=== PATIENT | female | born 2000 | race Caucasian/White ===

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

== ENCOUNTER → 2021-04-30 11:13 | Outpatient (BNVA) | payer BC, SELFPAY | PROVIDERS: Family Provider Nurse Practitioner; PCP Nurse Practitioner Family; Visit Provider Nurse Practitioner Women's Health | DX: N91.2 Amenorrhea, unspecified (principal); N92.6 Irregular menstruation, unspecified | CPT/HCPCS: 81025 ==

== ENCOUNTER → 2021-05-12 10:19 | Outpatient (BNVA) | payer BC, MEDICAID, SELFPAY | PROVIDERS: Family Provider Nurse Practitioner; PCP Nurse Practitioner Family; Visit Provider Nurse Practitioner Women's Health | DX: Z34.80 Encounter for supervision of other normal pregnancy, unspecified trimester (principal) | CPT/HCPCS: 81000 ==

== ENCOUNTER → 2021-06-09 09:32 | Outpatient (BNVA) | payer BC, MEDICAID, SELFPAY | PROVIDERS: Family Provider Nurse Practitioner; PCP Nurse Practitioner Family; Visit Provider Obstetrics & Gynecology | DX: Z34.80 Encounter for supervision of other normal pregnancy, unspecified trimester (principal); K21.9 Gastro-esophageal reflux disease without esophagitis; F41.1 Generalized anxiety disorder | CPT/HCPCS: 80307; 81000; 85027; 86592; 86762; 86803; 86850; 86900; 87086; 87340; 87491; 87591; 87806 ==

== ENCOUNTER → 2021-06-16 10:43 | Outpatient (BNVA) | payer BC, MEDICAID, SELFPAY | PROVIDERS: Family Provider Nurse Practitioner; PCP Nurse Practitioner Family; Visit Provider Obstetrics & Gynecology | DX: R30.0 Dysuria (principal) | CPT/HCPCS: 81000; 87086 ==

== ENCOUNTER → 2021-07-01 09:59 | Outpatient (BNVA) | payer BC, MEDICAID, SELFPAY | PROVIDERS: Family Provider Nurse Practitioner; PCP Nurse Practitioner Family; Visit Provider Nurse Practitioner Women's Health | DX: Z34.80 Encounter for supervision of other normal pregnancy, unspecified trimester (principal) | CPT/HCPCS: 81000 ==

== ENCOUNTER → 2021-08-07 15:19 | Outpatient (BNVA) | payer BC, MEDICAID, SELFPAY | PROVIDERS: Family Provider Nurse Practitioner; PCP Nurse Practitioner Family; Visit Provider Obstetrics & Gynecology | DX: Z36.87 Encounter for antenatal screening for uncertain dates (principal) | CPT/HCPCS: 76805 ==

== ENCOUNTER → 2021-08-11 08:58 | Outpatient (BNVA) | payer BC, MEDICAID, SELFPAY | PROVIDERS: Family Provider Nurse Practitioner; PCP Nurse Practitioner Family; Visit Provider Obstetrics & Gynecology | DX: Z34.80 Encounter for supervision of other normal pregnancy, unspecified trimester (principal); Z67.91 Unspecified blood type, Rh negative | CPT/HCPCS: 81000 ==

== ENCOUNTER → 2021-08-25 09:41 | Outpatient (BNVA) | payer BC, MEDICAID, SELFPAY | PROVIDERS: Family Provider Nurse Practitioner; PCP Nurse Practitioner Family; Visit Provider Nurse Practitioner Women's Health | DX: O26.899 Other specified pregnancy related conditions, unspecified trimester (principal); Z67.91 Unspecified blood type, Rh negative; F41.1 Generalized anxiety disorder; K21.9 Gastro-esophageal reflux disease without esophagitis; Z3A.00 Weeks of gestation of pregnancy not specified | CPT/HCPCS: 81000 ==

== ENCOUNTER → 2021-09-22 10:15 | Outpatient (BNVA) | payer BC, MEDICAID, SELFPAY | PROVIDERS: Family Provider Nurse Practitioner; PCP Nurse Practitioner Family; Visit Provider Obstetrics & Gynecology | DX: Z34.80 Encounter for supervision of other normal pregnancy, unspecified trimester (principal) | CPT/HCPCS: 81000; 82950; 85027; 86850 ==

== ENCOUNTER → 2021-10-06 10:09 | Outpatient (BNVA) | payer BC, MEDICAID, SELFPAY | PROVIDERS: Family Provider Nurse Practitioner; PCP Nurse Practitioner Family; Visit Provider Nurse Practitioner Women's Health | DX: Z34.80 Encounter for supervision of other normal pregnancy, unspecified trimester (principal) | CPT/HCPCS: 81000 ==

== ENCOUNTER → 2021-10-19 12:59 | Outpatient (BNVA) | payer BC, MEDICAID, SELFPAY | PROVIDERS: Family Provider Nurse Practitioner; PCP Nurse Practitioner Family; Visit Provider Obstetrics & Gynecology | DX: O26.899 Other specified pregnancy related conditions, unspecified trimester; R31.9 Hematuria, unspecified; Z67.91 Unspecified blood type, Rh negative; Z3A.00 Weeks of gestation of pregnancy not specified | CPT/HCPCS: 81000 ==

== ENCOUNTER → 2021-10-27 15:30 | Outpatient (BNVA) | payer BC, MEDICAID, SELFPAY | PROVIDERS: Family Provider Nurse Practitioner; PCP Nurse Practitioner Family; Visit Provider Obstetrics & Gynecology | DX: Z34.80 Encounter for supervision of other normal pregnancy, unspecified trimester (principal) | CPT/HCPCS: 81000; 87086 ==

== ENCOUNTER → 2021-11-03 12:03 | Outpatient (BNVA) | payer BC, MEDICAID, SELFPAY | PROVIDERS: Family Provider Nurse Practitioner; PCP Nurse Practitioner Family; Visit Provider Obstetrics & Gynecology | DX: Z78.9 Other specified health status (principal); Z34.80 Encounter for supervision of other normal pregnancy, unspecified trimester | CPT/HCPCS: 81000 ==

== ENCOUNTER → 2021-11-16 09:00 | Outpatient (BNVA) | payer BC, MEDICAID, SELFPAY | PROVIDERS: Family Provider Nurse Practitioner; PCP Nurse Practitioner Family; Visit Provider Obstetrics & Gynecology | DX: Z34.80 Encounter for supervision of other normal pregnancy, unspecified trimester (principal); Z3A.00 Weeks of gestation of pregnancy not specified | CPT/HCPCS: 81000; 87081 ==

== ENCOUNTER → 2021-11-23 13:18 | Outpatient (BNVA) | payer BC, MEDICAID, SELFPAY | PROVIDERS: Family Provider Nurse Practitioner; PCP Nurse Practitioner Family; Visit Provider Obstetrics & Gynecology | DX: Z34.80 Encounter for supervision of other normal pregnancy, unspecified trimester (principal); Z3A.00 Weeks of gestation of pregnancy not specified | CPT/HCPCS: 81000 ==

== ENCOUNTER → 2021-11-30 13:09 | Outpatient (BNVA) | payer BC, MEDICAID, SELFPAY | PROVIDERS: Family Provider Nurse Practitioner; Visit Provider Obstetrics & Gynecology | DX: Z34.80 Encounter for supervision of other normal pregnancy, unspecified trimester (principal) | CPT/HCPCS: 81000 ==

== ENCOUNTER → 2021-12-07 08:20 | Outpatient (BNVA) | payer BC, MEDICAID, SELFPAY | PROVIDERS: Family Provider Nurse Practitioner; Visit Provider Obstetrics & Gynecology | DX: Z34.80 Encounter for supervision of other normal pregnancy, unspecified trimester (principal); Z3A.00 Weeks of gestation of pregnancy not specified | CPT/HCPCS: 81000; 87635 ==

== ENCOUNTER 2021-12-08 14:45 | Outpatient (CLI) | payer BC, MEDICAID, SELFPAY ==
[2021-12-08] VITALS (11 sets, daily range): BP systolic 84–129; BP diastolic 52–70; PULSE 90–100; TEMP 36; BMI 28.7
--- NOTE | 2021-12-08 15:35 | PM.ACPR ---
Procedure/Consent Procedure Narrative: NONSTRESS TEST: Place of test: [facility] [place] Indication: 21-year-old 2 para 0-0-1-0 at 39 weeks and 2 days-abdominal pain/contractions Date and time of test: 3:15 PM, 12/08/2021 Baseline: 130 Variability: Moderate variability Accelerations: Accelerations present Decelerations: No decelerations Tocometry: Irregular contractions INTERPRETATION: NST reactive-clinical correlation recommended, continue kick counts
== END 2021-12-08 17:45 | disposition home or self-care (01) ==
LOC: OPOB 14:46 → OBGYN 14:55
PROVIDERS: Family Provider Nurse Practitioner; Visit Provider Obstetrics & Gynecology
DX: O26.899 Other specified pregnancy related conditions, unspecified trimester (principal); Z3A.00 Weeks of gestation of pregnancy not specified; R10.9 Unspecified abdominal pain
CPT/HCPCS: 59025; 99211

== ENCOUNTER 2021-12-14 21:48 | Inpatient (IN) | payer BC, MEDICAID, SELFPAY ==
[2021-12-14] VITALS (35 sets, daily range): BP systolic 99–127; BP diastolic 55–68; PULSE 85–119; RESP 16; O2SAT 96–99; BMI 28.3
[2021-12-14 20:32] LABS: Basophils # 0.1 10^3/uL (0.0-0.1); Basophils % 0.3 %; Eosinophils # 0.1 10^3/uL (0.0-0.8); Eosinophils % 0.6 %; Lymphocytes % 19.1 %; Mean Corpuscular HGB Conc 32.5 g/dL (30.0-36.0); Mean Corpuscular Hemoglobin 30.5 pg (28.0-34.0); Mean Corpuscular Volume 93.9 fl (81-99); Monocytes % 6.1 %; Neutrophils # 11.29 10^3/uL (1.8-8.0); Neutrophils % 71.6 %; Nucleated Red Blood Cells % 0 %; Platelet Count 232 10^3/cmm (130-400); Red Blood Count 4.26 10^6/uL (4.1-5.3); Red Cell Distribution Width 14.3 % (12.1-15.1); White Blood Count 15.8 10^3/uL (4.5-13.0)
[2021-12-14] MEDS: dextrose 5%-lactated ringers 1,000 ML 999 ML IV (20:38)
[2021-12-14] MEDS: miSOPROStol 100 mcg tablet 25 MCG VAGINAL (23:00)
[2021-12-15] VITALS (99 sets, daily range): BP systolic 83–139; BP diastolic 44–90; PULSE 76–111; RESP 16–18; TEMP 36.4–37.2; O2SAT 97–100
[2021-12-15] MEDS: lactated ringers 1,000 ML 999 ML IV ×2 (02:38→03:52)
--- NOTE | 2021-12-15 03:57 | ANES.PREANE2 ---
Pre-Anesthetic Assessment Height/Weight: Height 1.55 m Weight 68.039 kg Pulse Resp BP Pulse Ox 102 H 16 114/63 98 12/15/21 03:54 12/14/21 20:18 12/15/21 03:54 12/15/21 03:54 Preop Diagnosis: IUP JORDEN Was Beta Joaquim taken within 24 hours: N/A Was Clonidine taken within 24 hours: N/A Social No alcohol and No tobacco Exam alert and oriented x 3 Airway Submandibular: within normal limits Cervical ROM: within normal limits Mallampati: Class II Dentition: full History/ROS No significant complaints Anesthetic Plan ASA status: 2 Anesthesia: Anesthesia Evaluation and Regional (specify below) (labor epidural) Risk of > 500 ml blood loss (7ml/kg in children): No Medications/Allergies Home Medications Medication Instructions Recorded Confirmed Last Taken Type prenat.vits,carlos enrique,gra-brxh-iqwac 1 tab PO DAILY 09/22/21 12/14/21 12/14/21 History breast pump (Pump In Style #1 ea 11/03/21 12/14/21 Unknown Rx Advanced) Allergies Allergy/AdvReac Type Severity Reaction Status Date / Time Penicillins AdvReac rash--Never Verified 12/14/21 21:23 took Keflex Current Medications Generic Name Dose Route Start Last Admin Trade Name Freq PRN Reason Stop Dose Admin Dextrose/Lactated Ringer's 1,000 mls @ 125 mls/hr 12/14/21 20:18 12/14/21 21:16 Dextrose 5%-Lactated Ringers IV 125 mls/hr .Q8H PRN Infusion IOL Lactated Ringer's 1,000 mls @ 999 mls/hr 12/15/21 02:33 12/15/21 02:38 Lactated Ringers IV 999 mls/hr .Q1H1M PRN Administration See label comments [facility] Anesthesia Medical History Decreased hearing of right ear Decreased hearing in right ear after she jumped off a height into a pool and hurt her ear She can still hear although not very well. Generalized anxiety disorder Reports having had some anxiety in the past but has not needed medication. She does not have a therapist. She feels like it was situational. GERD (gastroesophageal reflux disease) Symptomatic since 2018 and has been on omeprazole. Has not had an endoscopy done. Migraine no aura. States that she has pretty bad headaches and was told they were migraines by a neurologist and was asked to take propanolol in the past which did not help and symptoms are controlled on Tylenol as needed. No pertinent past medical history Denies diabetes, asthma, hypertension, seizures, DVT/PE PCP: None Surgical History No history of previous surgery Family History Family/Other Diabetes Maternal Aunt with type 1 DM Colon cancer Paternal Great Grandfather--dx age 60/ and paternal grandfather age at dx 61 Father Hypertension Denies family history of Ovarian cancer Heart disease Hypercholesteremia Breast cancer Uterine cancer Thyroid disease Stroke Female Reproductive History : 2 Data Anesthesia : 12/14/21 19:50 Short CBC 12/14/21 Range/Units 19:50 WBC 15.8 H (4.5-13.0) 10^3/uL Hgb 13.0 (11.5-15.3) g/dL Hct 40.0 (37.0-47.0) % MCV 93.9 (81-99) fl Plt Count 232 (130-400) 10^3/cmm Neut % (Auto) 71.6 % Neut # (Auto) 11.29 H (1.8-8.0) 10^3/uL Cardiac Studies: No Data to Display
--- NOTE | 2021-12-15 03:59 | ANES.PROC ---
Anesthesia Procedures Procedure/Date: 12/15/21 JORDEN Epidural: Time Out Performed: Yes Consents Signed: Procedure Consent Consent: from patient, risks and benefits reviewed and patient agrees to proceed Lumbar Level: L3-L4 Epidural position: sitting Epidural procedure: sterile prep of area, 1% lidocaine to numb the area, 18 g needle, negative for paresthesia passed, test dose given, 1.5% xylocaine 1:200k epi (3cc), placed PCEA, no systemic response, sterile dressing applied, L.U.D. no apparent complications and 0.2% Ropiavacaine @ mls/hr (11) Additional Comments: LAVERN at 5 Taped at 11 at skin.
[2021-12-15] MEDS: dextrose 5%-lactated ringers 1,000 ML 125 ML IV ×2 (08:00→12:25)
[2021-12-15] MEDS: oxytocin 30 UNIT/500 ML BAG IV (08:21)
[2021-12-15] MEDS: ondansetron 2 mg/ML SDV 2 mL 4 MG IVP (13:03)
[2021-12-15] MEDS: metoclopramide 5 mg/mL SDV 2 mL 10 MG IV (14:30)
[2021-12-15] MEDS: lidocaine 2% INJ 20 mL INJECTION (18:05)
--- NOTE | 2021-12-15 18:30 | P.PCNOB_ITS ---
Delivery Note: Date of delivery: December 15, 2021 - PRE-DELIVERY DIAGNOSIS: 21-year-old 2 para 0-0-1-0 at 40 weeks and 2 days gestation Elective induction of labor Rh negative--- RhoGam candidate Anxiety-no medication Acid reflux-no medication POST-DELIVERY DIAGNOSIS: Vaginal delivery on 12/15/2021 PROCEDURE: Vaginal delivery on 12/15/2021 ANESTHESIA: Epidural anesthesia, local anesthesia with 2% lidocaine DELIVERING PHYSICIAN: Tu Kahn FACKARLOS PRE-DELIVERY COURSE: Ms. Herrera is a 21-year-old 2 para 0-0-1-0 at 40 weeks and 1 day gestation who presented to labor and delivery on 12/14/2021 for scheduled elective induction of labor. On admission she had irregular contractions and a category 1 tracing and cervix was 1 cm 50% and -3 station. After IV fluid hydration her contractions resolved and she had no further contractions. Induction was started with Cytotec placed at 11 PM. With this she started to have regular contraction and made some cervical change to 2 to 360% and -2 station. She was uncomfortable and an epidural was placed. After the epidural she was noted to be 4 cm 70% and -2 station and artificial rupture of membranes was performed at 6:27 AM on 12/15/2021. Contractions spaced out to every 5 to 7 minutes and she was making no further cervical change. Pitocin was started at 8:30 AM on 12/15/2021. Pitocin was titrated to a maximum of 17 mIU and with this she started to have regular contractions and started to make cervical change. She was 7 cm at noon and 9 cm at 3 PM and fully dilated at about 4:15 PM. She was allowed to labor down and was +2 station and set up in lithotomy ready to push. During this time tracing was overall category 1 with occasional early decelerations which resolved with position change. DELIVERY NOTE: She was set up in lithotomy position and was pushing effectively. She was noted to be +3 station and continued pushing well. The head delivered in ORESTES position, nuchal cord x1 was present. It was tight and unable to be reduced. The shoulders and rest of the body followed with her next push and deliver through the cord without any difficulty The baby's mouth and nose were suctioned and the baby was placed on the mother's belly. Once cord pulsations stopped the cord was clamped and cut. The placenta delivered spontaneously intact with membranes and was discarded. The fundus was noted to be firm and well contracted. The vagina and cervix were inspected and no cervical or sulcal lacerations were noted. The perineum was noted to have a second-degree tear which was infiltrated with lidocaine and repaired in the usual fashion with 2-0 Vicryl on a CT1. Good reapproximation and hemostasis was achieved. Baby girlHoracio born at 6 PM on 12/15/2021 with 8/9, weighing 7 pounds 11 ounces, 3495 g, 21-1/2 inches long. Placenta was delivered spontaneously intact with membranes at 6:04 PM on 12/15/2021 Cotyledons were intact , eccentrically inserted umbilical cord with 3 vessels noted. Estimated blood loss 300 mL. Complications-none, both baby and mother were left to recover in a stable condition This documentation was created by [employer] director of pulmonary unit software (known for inherent director of pulmonary unit error). Every effort was made to assure accuracy of director of pulmonary unit. Any obvious errors or omissions should be clarified with the author of the document. History History History 2 Term 1 Miscarriages/Ectopic 1 0 Living Children 1 Other History: 2 Para 1011 SAB X 1 X 1 1---> 2019 first trimester SAB; no intervention 2---> 12/15/2021-vaginal delivery at 40 weeks after induction. Baby girl(Horacio) weighing 7 pounds [address] Kahn at [facility] [place]. Second-degree perineal tear. No complications. Coding Level of Care Code Acute Bilingual Customer Service Specialist for Chg Cherelle
[2021-12-15] MEDS: ibuprofen 800 mg tablet PO (23:27)
[2021-12-16 00:09] VITALS: BP 100/59; PULSE 110; RESP 17; O2SAT 96
[2021-12-16 06:05] VITALS: BP 103/67; PULSE 77; RESP 18; TEMP 36.7; O2SAT 99
[2021-12-16] MEDS: HYDROcodone-acetaminophen 5-325 mg Tablet PO (06:26)
[2021-12-16] MEDS: benzocaine-menthol 78 gm Canister 1 SPRAY TOPICAL (06:27)
[2021-12-16] MEDS: lanolin oint 7 gm 1 APPLIC TOPICAL (06:27)
--- NOTE | 2021-12-16 06:48 | PC.NURSE ---
pt education pt given extensive education on feeding positions and nipple shield use. pt seems resistive to education given by this nurse including breast feeding; also resistive to allowing me to do rubdowns.
[2021-12-16 06:58] LABS: Hematocrit 31.2 % (37.0-47.0); Hemoglobin 9.9 g/dL (11.5-15.3); Mean Corpuscular HGB Conc 31.7 g/dL (30.0-36.0); Mean Corpuscular Hemoglobin 30.7 pg (28.0-34.0); Mean Corpuscular Volume 96.6 fl (81-99); Mean Platelet Volume 11.1 fL (7.4-10.4); Platelet Count 156 10^3/cmm (130-400); Red Blood Count 3.23 10^6/uL (4.1-5.3); Red Cell Distribution Width 14.2 % (12.1-15.1); White Blood Count 18.2 10^3/uL (4.5-13.0)
--- NOTE | 2021-12-16 08:05 | PM.PN ---
Subjective Subjective: SUBJECTIVE: Ms. Herrera is doing okay today other than just feeling sore on her bottom. She denies heavy vaginal bleeding and is bonding well with her daughter. She is having some difficulty latching on and questions as to if this is the cause of the times a day. She denies abdominal pain, fever, chills, shortness of breath and chest pain. She denies nausea and vomiting. Just feels tired and has no other questions or concerns. OBJECTIVE/PHYSICAL EXAM: Gen.: No acute distress Heart: S1-S2 heard, regular rate and rhythm Lungs: Clear to auscultation bilaterally Abdomen: Soft, fundus firm below umbilicus, Legs: No calf tenderness, +1 bilateral pitting pedal edema. ASSESSMENT AND PLAN: 21-year-old 2 para 1-0-1-1 status post vaginal delivery, day #1 -Doing well-continue routine care -P.o. pain medication as needed and encourage ambulation - consult -Vital signs stable and hemoglobin stable -Anticipate discharge home tomorrow as she delivered later in the evening -Discontinue IV after 24 hours Vitals/I&O/Wt Last Vital Signs Temp 98.1 F 12/16/21 06:05 Pulse 77 12/16/21 06:05 Resp 18 12/16/21 06:05 BP 103/67 12/16/21 06:05 Pulse Ox 99 12/16/21 06:05 12/15/21 12/16/21 12/16/21 22:59 06:59 14:59 Intake Total 1558.10 / 2676.000 2000 / 4676.000 Output Total 550 / 1450 1000 / 2450 Balance 1008.10 / 3915.688 8217 / 2226.000 Weight last 48 hrs Weight 150 lb Weight 150 lb Physical Exam Urinary Catheter Management: Razo Latex: Cath Placed During This Visit: yes, but has since been removed by the nurse Reason for Continuing Indwelling Catheter: Decision to DC Catheter Urinary Catheter Date of Insertion: 12/15/21 Urinary Catheter Time of Insertion: 04:14 Date Urinary Catheter Removed: 12/15/21 Time Urinary Catheter Discontinued: 17:12 Data : 12/16/21 06:00 Attestations Medical Necessity Statement*: Patient will need to stay 1-2 more midnights to recover from delivery Coding Level of Care Code Acute Inspector Fibrous Wallboard for Maria Dolores Cherelle
[2021-12-16] MEDS: docusate sodium 100 mg Capsule PO ×2 (09:05→18:28)
[2021-12-16] MEDS: ibuprofen 800 mg tablet PO ×3 (09:05→21:29)
[2021-12-16] MEDS: prenatal vitamin Capsule 1 CAP PO (09:05)
--- NOTE | 2021-12-16 10:58 | ANE.PACU2 ---
Inpatient post-anesthesia follow up: Airway intact: Yes Vital signs: Temperature 98.1 F Pulse Rate 77 Respiratory Rate 18 Blood Pressure 103/67 Pulse Oximetry 99 Oxygen Delivery Me thod Room Air Oxygen Flow Rate Fraction of Inspir ed Oxygen Hydration adequate: Yes Nausea and vomiting: No Pain level: 2 Mental status: Baseline
[2021-12-16 11:00] VITALS: BP 114/75; PULSE 89; RESP 16; TEMP 37; O2SAT 96
[2021-12-16 16:00] VITALS: BP 116/70; PULSE 82; RESP 16; TEMP 36.7; O2SAT 97
[2021-12-16 22:00] VITALS: BP 103/70; PULSE 91; TEMP 36.6
[2021-12-17 04:30] VITALS: BP 105/64; PULSE 90; TEMP 36.7
[2021-12-17] MEDS: ibuprofen 800 mg tablet PO (09:07)
[2021-12-17] MEDS: prenatal vitamin Capsule 1 CAP PO (09:07)
[2021-12-17] MEDS: docusate sodium 100 mg Capsule PO (09:07)
[2021-12-17 10:30] VITALS: BP 107/74; PULSE 88; TEMP 36.6; O2SAT 96
[2021-12-17 12:29] VITALS: PULSE 88; TEMP 36.6; O2SAT 96
--- NOTE | 2021-12-17 13:08 | PM.OBGYDC ---
Discharge Providers [facility] Date of Admission: 12/14/21 21:48 Date of Discharge: 12/17/21 Attending Provider at Admission: Tu Mays MD Attending Provider at Discharge: Tu Mays MD PRE-DELIVERY DIAGNOSIS: 21-year-old 2 para 0-0-1-0 at 40 weeks and 2 days gestation Elective induction of labor Rh negative--- RhoGam candidate Anxiety-no medication Acid reflux-no medication POST-DELIVERY DIAGNOSIS: Vaginal delivery on 12/15/2021 PROCEDURE: Vaginal delivery on 12/15/2021 ANESTHESIA: Epidural anesthesia, local anesthesia with 2% lidocaine DELIVERING PHYSICIAN: Tu Kahn FACOG PRE-DELIVERY COURSE: Ms. Herrera is a 21-year-old 2 para 0-0-1-0 at 40 weeks and 1 day gestation who presented to labor and delivery on 12/14/2021 for scheduled elective induction of labor.? On admission she had irregular contractions and a category 1 tracing and cervix was 1 cm 50% and -3 station.? After IV fluid hydration her contractions resolved and she had no further contractions.? Induction was started with Cytotec placed at 11 PM.? With this she started to have regular contraction and made some cervical change to 2 to 360% and -2 station.? She was uncomfortable and an epidural was placed.? After the epidural she was noted to be 4 cm 70% and -2 station and artificial rupture of membranes was performed at 6:27 AM on 12/15/2021.? Contractions spaced out to every 5 to 7 minutes and she was making no further cervical change.? Pitocin was started at 8:30 AM on 12/15/2021.? Pitocin was titrated to a maximum of 17 mIU and with this she started to have regular contractions and started to make cervical change.? She was 7 cm at noon and 9 cm at 3 PM and fully dilated at about 4:15 PM.? She was allowed to labor down and was +2 station and set up in lithotomy ready to push.? During this time tracing was overall category 1 with occasional early decelerations which resolved with position change. DELIVERY? NOTE: She was set up in lithotomy position and was pushing effectively. She was noted to be? +3 station and continued pushing well. The head delivered in ORESTES position, nuchal cord x1 was present.? It was tight and unable to be reduced.? The shoulders and rest of the body followed with her next push and deliver through the cord without any difficulty The baby's mouth and nose were suctioned and the baby was placed on the mother's belly.? Once cord pulsations stopped the cord was clamped and cut.? The placenta delivered spontaneously intact with membranes and was discarded. The fundus was noted to be firm and well contracted. The vagina and cervix were inspected and no cervical or sulcal lacerations were noted.? The perineum was noted to have a second-degree tear which was infiltrated with lidocaine and repaired in the usual fashion with 2-0 Vicryl on a CT1.? Good reapproximation and hemostasis was achieved. Baby girlHoracio born at 6 PM on 12/15/2021 with 8/9, weighing 7 pounds 11 ounces, 3495 g, 21-1/2 inches long. Placenta was delivered spontaneously intact with membranes at 6:04 PM on 12/15/2021 Cotyledons were intact , eccentrically inserted umbilical cord with 3 vessels noted. Estimated blood loss 300 mL. Complications-none, both baby and mother were left to recover in a stable condition HOSPITAL COURSE: She underwent an uncomplicated vaginal delivery on 12/15/2021. She did well on day 0 and was ambulating well, tolerating regular diet, voiding freely, passing flatus. She was breast-feeding without difficulty and bonding well with her daughter. Pain was well-controlled with by mouth pain medication. She denied nausea, vomiting, fever, chills, shortness of breath, leg pain. She had moderate vaginal bleeding. On day # 1 she continued to do well with stable vital signs and stable hemoglobin at 9.9. She continued to do well with stable vital signs on day #2 She was discharged home on day in a stable condition. Warning signs for endometritis, mastitis, DVT/PE were reviewed with her. Post delivery activity restrictions were also reviewed with her at all her questions were answered to her satisfaction. She is undecided as to what she wants to use for contraception and will discuss this at her visit. EXAM AT DISCHARGE: Gen.: No acute distress Heart: S1-S2 heard, regular rate and rhythm Lungs: Clear to auscultation bilaterally Abdomen: Soft, fundus firm below umbilicus, Legs: No calf tenderness, +1 bilateral pitting pedal edema. CONDITION AT DISCHARGE: Stable This documentation was created by [email or web address] sales order coordinator software (known for inherent sales order coordinator error). Every effort was made to assure accuracy of sales order coordinator. Any obvious errors or omissions should be clarified with the author of the document. Reason for Visit Reason for Visit: IOL Information Peripartum Data: Delivery Method: Vaginal Physical Exam Urinary Catheter Management: Razo Latex: Cath Placed During This Visit: yes, but has since been removed by the nurse Reason for Continuing Indwelling Catheter: Decision to DC Catheter Urinary Catheter Date of Insertion: 12/15/21 Urinary Catheter Time of Insertion: 04:14 Date Urinary Catheter Removed: 12/15/21 Time Urinary Catheter Discontinued: 17:12 History History History 2 Term 1 Miscarriages/Ectopic 1 0 Living Children 1 Other History: 2 Para 1011 SAB X 1 X 1 1---> 2018 first trimester SAB; no intervention 2---> 12/15/2021-vaginal delivery at 40 weeks after induction. Baby girl(Horacio) weighing 7 pounds [address] Kahn at [facility] [place]. Second-degree perineal tear. No complications. Discharge Data Studies Completed and Pending Laboratory Results WBC 18.2 10^3/uL (4.5-13.0) H 12/16/21 06:00 RBC 3.23 10^6/uL (4.1-5.3) L 12/16/21 06:00 Hgb 9.9 g/dL (11.5-15.3) L 12/16/21 06:00 Hct 31.2 % (37.0-47.0) L 12/16/21 06:00 MCV 96.6 fl (81-99) 12/16/21 06:00 MCH 30.7 pg (28.0-34.0) 12/16/21 06:00 MCHC 31.7 g/dL (30.0-36.0) 12/16/21 06:00 RDW 14.2 % (12.1-15.1) 12/16/21 06:00 Plt Count 156 10^3/cmm (130-400) 12/16/21 06:00 MPV 11.1 fL (7.4-10.4) H 12/16/21 06:00 Neut % (Auto) 71.6 % 12/14/21 19:50 Lymph % (Auto) 19.1 % 12/14/21 19:50 [place] % (Auto) 6.1 % 12/14/21 19:50 Eos % (Auto) 0.6 % 12/14/21 19:50 Baso % (Auto) 0.3 % 12/14/21 19:50 Neut # (Auto) 11.29 10^3/uL (1.8-8.0) H 12/14/21 19:50 Lymph # (Auto) 3.0 10^3/uL (1.5-6.5) 12/14/21 19:50 [place] # (Auto) 1.0 10^3/uL (0.2-0.9) H 12/14/21 19:50 Eos # (Auto) 0.1 10^3/uL (0.0-0.8) 12/14/21 19:50 Baso # (Auto) 0.1 10^3/uL (0.0-0.1) 12/14/21 19:50 Nucleated RBC % (auto) 0 % 12/14/21 19:50 Nucleated RBCs # 0.0 /100WBC 12/14/21 19:50 Vitals Last Vital Signs Temp 97.9 F 12/17/21 12:29 Pulse 88 12/17/21 12:29 Resp 16 12/16/21 16:00 BP 107/74 12/17/21 12:29 Pulse Ox 96 12/17/21 12:29 Discharge Plan Discharge Patient Disposition: Home Condition: Stable Prescriptions: New hydrocodone-acetaminophen 5-325 mg tablet 1 tab PO Q6H Qty: 8 0RF Rx Instructions: Alternate with ibuprofen ibuprofen 800 mg tablet 800 mg PO Q8H Qty: 30 0RF docusate sodium 100 mg Capsule 100 mg PO BID PRN (Reason: constipation) Qty: 30 0RF Continued prenat.vits,carlos enrique,[id number]-[id number]-prwtj Tablet 1 tab PO DAILY 0RF No Action (DME) breast pump [Pump In Style Advanced] Device See Rx Instructions .ROUTE .MEDSUPPLY Qty: 1 0RF Rx Instructions: As directed Discharge Orders: Discharge Order (Routine); Ordered 12/17/21 Ordered By: Tu Mays Referrals: Tu Mays MD [Physician] - 6 Weeks (Your 6 week post- appointment is scheduled for 01/26/22 @12:15. ) Discharge Diet: Regular Discharge Activity: Limit activity as instructed Patient Instructions: Lanolin (On the skin) (Lansinoh For Breast Feeding Mothers,..., Depression (DC), Expression, Collection and Storage of Breast Milk (DC), and Nipple Soreness (DC), and Breast Engorgement (DC), How to Increase Your Milk Supply (DC), Bleeding (DC), Preeclampsia and Eclampsia After Delivery (GEN), Breast Care for the Mother (DC), OB Discharge Report, OB Food/Drug Interaction Guide, OB Care at Home, Opioid Safety, OB Vaginal Deliveries - [facility] Activity Restrictions/Additional Instructions: Pelvic rest for 6 weeks, no heavy lifting for 6 weeks 6-week visit with Dr. Kahn. Discharge Attestations [facility] Time Spent in Discharge Care*: greater than 30 min Coding Level of Care Code Acute Associate Product Integrity Engineer for Chg Cherelle
[2021-12-17 14:30] VITALS: BP 110/82; PULSE 92; RESP 16; TEMP 36.7; O2SAT 97
[2021-12-17 14:45] VITALS: BP 110/82; PULSE 92; RESP 16; TEMP 36.7; O2SAT 97
== END 2021-12-17 14:45 | disposition home or self-care (01) | DRG 807 ==
LOC: OPOB 21:48 → OBGYN 21:48
PROVIDERS: Admitting Provider Obstetrics & Gynecology; Family Provider Nurse Practitioner; Visit Provider Obstetrics & Gynecology
DX: O48.0 Post-term pregnancy (principal); Z37.0 Single live birth; Z3A.40 40 weeks gestation of pregnancy; O70.1 Second degree perineal laceration during delivery; O69.81X0 Labor and delivery complicated by cord around neck, without compression, not applicable or unspecified
CPT/HCPCS: 36415; 51702; 59025; 59409; 81000; 85025; 85027; 96374; J2405; J2765; J2795

== ENCOUNTER → 2022-01-26 13:10 | Outpatient (BNVA) | payer BC, MEDICAID, SELFPAY | PROVIDERS: Family Provider Nurse Practitioner; Visit Provider Obstetrics & Gynecology | DX: Z12.4 Encounter for screening for malignant neoplasm of cervix (principal) | CPT/HCPCS: 88175 ==

== ENCOUNTER → 2022-04-03 13:33 | Outpatient (BNVA) | payer BC, MEDICAID, SELFPAY | PROVIDERS: Family Provider Nurse Practitioner; PCP Nurse Practitioner; Visit Provider Registered Nurse Neonatal Intensive Care | DX: N39.0 Urinary tract infection, site not specified (principal) | CPT/HCPCS: 81000 ==

== ENCOUNTER 2022-06-18 20:22 | Emergency (ER) | payer BC, MEDICAID, SELFPAY ==
[2022-06-18 20:55] VITALS: BP 108/70; PULSE 77; RESP 14; TEMP 36.6; O2SAT 99; BMI 24.5
--- NOTE | 2022-06-18 21:25 | ED_ITS ---
Documented by User: Blas Laureano DO 06/18/22 22:55 HPI - Female Genitourinary General: Chief complaint: Vaginal Bleeding Stated complaint: vag bleeding, thinks she's preg. Time Seen by Provider: 06/18/22 21:10 Source: patient Mode of arrival: ambulatory Limitations: no limitations History of Present Illness: This patient presents to the Emergency Department because of concerns about vaginal bleeding. She states that she noted that she had clots both yesterday and today and when she asked her family member they expressed concern that she may be having a miscarriage. She states that her last menstrual period was sometime last month and that she started bleeding yes terday and thought that was her normal menstrual cycle. She states she has had cramping which is not unusual with her menstrual cycle however it seems more intense today. She otherwise in good health. She had a spontaneous vaginal delivery in November of this year. No other significant past medical history. MD elicited complaint: vaginal bleeding Associated symptoms: Deny abdominal pain, headache(s) or nausea Possible : unsure if and at home test positive Date of Last Menstrual Period: 05/14/22 Review of Systems Const: Denies: fever(s) or chills Eyes: Denies: change in vision ENMT: Denies: odynophagia, nasal discharge or nasal congestion Card: Denies: chest pain or palpitations Resp: Denies: dyspnea, productive cough or non-productive cough GI: Denies: abdominal pain, nausea, vomiting or diarrhea : Reports: vaginal bleeding; Denies: difficulty voiding, dysuria or urinary frequency Musc: Denies: neck pain, back pain or extremity pain Skin/Breast: Denies: rash Neuro: Denies: headache(s), numbness in extremities or weakness in extremities Selvin/Lymph: Denies: easy bruising or easy bleeding PFS ED PFSH: Medical History Decreased hearing of right ear Decreased hearing in right ear after she jumped off a height into a pool and hurt her ear She can still hear although not very well. Generalized anxiety disorder Reports having had some anxiety in the past but has not needed medication. She does not have a therapist. She feels like it was situational. GERD (gastroesophageal reflux disease) Symptomatic since 2018 and has been on omeprazole. Has not had an endoscopy done. Migraine no aura. States that she has pretty bad headaches and was told they were migraines by a neurologist and was asked to take propanolol in the past which did not help and symptoms are controlled on Tylenol as needed. No pertinent past medical history Denies diabetes, asthma, hypertension, seizures, DVT/PE PCP: None Surgical History No history of previous surgery Family History Family/Other Diabetes Maternal Aunt with type 1 DM Colon cancer Paternal Great Grandfather--dx age 60/ and paternal grandfather age at dx 61 Father Hypertension Denies family history of Ovarian cancer Heart disease Hypercholesteremia Breast cancer Uterine cancer Thyroid disease Stroke Social History Smoking and tobacco status: never smoked Second hand smoke exposure: No Smoking risk assessment/counseling performed?: No Alcohol intake: never Desire information about alcohol rehabilitation?: No Counseling given: No Desire information about substance/drug rehabilitation?: No Counseling given: No Adopted: No Caregiver/support person: No Lives independently: Yes Household members: children Housing: House Marital status: Single Number of children: 1 service: No Current occupational status: employed Current occupation: [employer] Current occupational exposures/hazards: No Current gender identity: Female Female Reproductive History: Date of last menstrual period: 05/14/22 Physical Exam Narrative: EXAM NARRATIVE: And appears to be comfortable. She makes good eye contact. She is very cooperative and engaging. Const: COMMON NORMALS: no acute distress, average body habitus and patient oriented x3 HENMT: COMMON NORMALS: normocephalic, moist oral mucous membranes and oropharynx normal HEAD & SCALP: normocephalic Eye: COMMON NORMALS: Equal, round and reactive pupils present and conjunctivae normal CONJUNCTIVA: Yes conjunctivae normal PUPIL: Yes Equal, round and reactive pupils present Neck/C-Spine: COMMON NORMALS: full ROM Resp: COMMON NORMALS: normal respiratory effort, No retractions and No use of accessory muscles Cardio: COMMON NORMALS: regular rate, regular rhythm and Peripheral pulses 2+ throughout RATE: regular rate RHYTHM: regular rhythm PERIPHERAL PULSES: Peripheral pulses 2+ throughout GI: COMMON NORMALS: Normal to inspection, nondistended, normoactive bowel sounds present, Soft to palpation and non-tender PALPATION: Yes Soft to palpation : COMMON NORMALS: Yes no CVA tenderness BLADDER/KIDNEY EXAM: Yes no CVA tenderness Back/Pelvis: COMMON NORMALS: no CVA tenderness, thoracic and lumbar spine normal to inspection and no thoracic nor lumbar tenderness Extremity: COMMON NORMALS: normal to inspection, full ROM, no calf tenderness and no pedal edema Neuro: COMMON NORMALS: patient oriented x3, moves all extremities, no focal motor deficits and no sensory deficits noted CRANIAL NERVES: Yes CN normal e xcept as noted Psych: COMMON NORMALS: mental status grossly normal Skin: COMMON NORMALS: no rashes or lesions noted, no wounds, turgor normal and no petechiae GENERAL SKIN EXAM: no rashes or lesions noted and turgor normal Course Reevaluation(s): Reevaluation #1: Patient is Rh- by past chart review. She has a positive serum hCG in the 400+ range. We will [place] proceed with transvaginal pelvic ultrasound however I cautioned her that this may be too early in her gestation to make a accurate determination. Time: 22:14 Reevaluation #2: Discussed with Dr. Gallo who will assume care for disposition based upon ultrasound. If the ultrasound is otherwise unremarkable she will need quantitative hCGs and a repeat ultrasound with OB.. Time: 22:55 Vital Signs: Vital signs: Vital Signs Temperature 98.0 F 06/19/22 01:34 Pulse Rate 92 06/19/22 01:29 Respiratory Rate 18 06/19/22 01:29 Blood Pressure 106/69 06/19/22 01:29 Pulse Oximetry 95 06/19/22 01:29 Oxygen Delivery Me thod 06/18/22 20:55 MDM - Female Medical Decision Making This patient with uncertain as to whether she is or not presented to the emergency department because of the concerns about vaginal bleeding. She had some associated clotting and slightly more intense cramping than his usual with her periods. She was evaluated and found to have a nontender abdomen with no evidence of peritoneal signs etc. She did have a positive serum hCG and an pelvic ultrasound was obtained to give some predictive value to her current ge station. She remains clinically stable she will need serial quantitative hCGs and follow-up with her experimental welder. She will be given RhoGAM due to her Rh negativity. Medical Records I reviewed the patient's medical records. Lab Data I reviewed the patient's lab results. : 06/18/22 21:15 Radiology Impressions Pelvic/Transvag US 06/18/22 22:11 IMPRESSION: 1. Negative for intrauterine , patient remains at risk for ectopic if they are , close clinical correlation, serial beta HCG levels and follow-up ultrasound as clinically indicated advised. 2. Trace nonspecific fluid in the pelvis. Laboratory Results WBC 7.6 10^3/uL (4.0-10.0) 06/18/22 21:15 RBC 4.82 10^6/uL (4.1-5.3) 06/18/22 21:15 Hgb 14.2 g/dL (11.5-15.3) 06/18/22 21:15 Hct 43.1 % (37.0-47.0) 06/18/22 21:15 MCV 89.4 fl (81-99) 06/18/22 21:15 MCH 29.5 pg (28.0-34.0) 06/18/22 21:15 MCHC 32.9 g/dL (30.0-36.0) 06/18/22 21:15 RDW 12.1 % (12.1-15.1) 06/18/22 21:15 Plt Count 418 10^3/cmm (130-400) H 06/18/22 21:15 MPV 9.2 fL (7.4-10.4) 06/18/22 21:15 Neut % (Auto) 46.6 % 06/18/22 21:15 Lymph % (Auto) 46.6 % 06/18/22 21:15 Gilchrist % (Auto) 4.9 % 06/18/22 21:15 Eos % (Auto) 0.8 % 06/18/22 21:15 Baso % (Auto) 0.7 % 06/18/22 21:15 Neut # (Auto) 3.56 10^3/uL (1.8-7.7) 06/18/22 21:15 Lymph # (Auto) 3.6 10^3/uL (0.8-4.8) 06/18/22 21:15 Gilchrist # (Auto) 0.4 10^3/uL (0.2-0.9) 06/18/22 21:15 Eos # (Auto) 0.1 10^3/uL (0.0-0.8) 06/18/22 21:15 Baso # (Auto) 0.1 10^3/uL (0.0-0.1) 06/18/22 21:15 Nucleated RBC % (auto) 0 % 06/18/22 21:15 Nucleated RBCs # 0.0 /100WBC 06/18/22 21:15 HCG, Qual Positive (Negative) H 06/18/22 21:15 Urine Color Yellow (Yellow) 06/18/22 21:15 Urine Appearance Clear (CLEAR) 06/18/22 21:15 Urine pH 5 (5-7) 06/18/22 21:15 Ur Specific Mcgrath 1.025 (1.005-1.030) 06/18/22 21:15 Urine Protein Neg (Negative) 06/18/22 21:15 Urine Glucose (UA) Norm (Normal) 06/18/22 21:15 Urine Ketones Negative (Negative) 06/18/22 21:15 Urine Blood 3+ (Negative) H 06/18/22 21:15 Urine Nitrate Negative (Negative) 06/18/22 21:15 Urine Bilirubin Neg (Negative) 06/18/22 21:15 Urine Urobilinogen Norm mg/dL (Negative) 06/18/22 21:15 Ur Leukocyte Esterase Negative (Negative) 06/18/22 21:15 Urine RBC 0-4 /hpf (0-2) H 06/18/22 21:15 Urine WBC 0-4 /hpf (0-5) H 06/18/22 21:15 Ur Squamous Epith Cells 10-15 /hpf (0-5) H 06/18/22 21:15 Amorphous Sediment Not Reportable 06/18/22 21:15 Urine Bacteria 1+ /hpf (NONE) H 06/18/22 21:15 Urine Mucus Trace /hpf 06/18/22 21:15 Blood Type A Negative 06/18/22 21:55 Rho(D) Type Negative 06/18/22 21:55 Antibody Screen Negative 06/18/22 21:55 Discharge Plan Discharge Patient Disposition: Home Clinical Impression: Threatened Condition: Stable Prescriptions: No Action ketoconazole 2 % shampoo 1 applic topical DAILY Qty: 120 3RF Rx Instructions: Use as body wash x 3 weeks then 1 wk/mo. Allow to sit on skin 5 min. before rinsing. ciclopirox 0.77 % cream 1 applic topical BID 28 Days Qty: 90 2RF Rx Instructions: To chest, neck and back as directed. do not apply to nipples while nursing etonogestrel-ethinyl estradiol [NuvaRing] 0.12-0.015 mg/24 hr ring 1 vag ring vaginal .monthly Qty: 3 3RF Rx Instructions: Insert ring for three weeks; remove for one week for period. zonisamide 50 mg capsule 50 mg PO .at bedtime Qty: 30 2RF mupirocin 2 % ointment 1 applic topical BID Qty: 22 0RF Discharge Orders: Discharge ED (Routine); Ordered 06/19/22 Ordered By: Kiel Gallo Referrals: Adriana Braun, [facility] [Primary Care Provider] - 1-3 days Discharge Diet: Usual diet Discharge Activity: Increase activity as tolerated Activity Restrictions/Additional Instructions: Return for worsening pain, worsening vaginal bleeding, soaking a pad an hour for more than 3 hours, fever greater than 100, vomiting liquids or medications, any other concerning symptoms. See your doctor on Tuesday, for repeat blood test to make sure these numbers are going down. Repeat ultrasound may or may not be needed. Coding Level of Care Code ED Event Planning Intern for Chg Fwd Exam Comprehensive Documented by User: Kiel Gallo DO 06/19/22 14:31 HPI - Female Genitourinary General: Chief complaint: Vaginal Bleeding Stated complaint: vag bleeding, thinks she's preg. Time Seen by Provider: 06/18/22 21:10 [facility] ED PFSH: Medical History Decreased hearing of right ear Decreased hearing in right ear after she jumped off a height into a pool and hurt her ear She can still hear although not very well. Generalized anxiety disorder Reports having had some anxiety in the past but has not needed medication. She does not have a therapist. She feels like it was situational. GERD (gastroesophageal reflux disease) Symptomatic since 2018 and has been on omeprazole. Has not had an endoscopy done. Migraine no aura. States that she has pretty bad headaches and was told they were migraines by a neurologist and was asked to take propanolol in the past which did not help and symptoms are controlled on Tylenol as needed. No pertinent past medical history Denies diabetes, asthma, hypertension, seizures, DVT/PE PCP: None Surgical History No history of previous surgery Family History Family/Other Diabetes Maternal Aunt with type 1 DM Colon cancer Paternal Great Grandfather--dx age 60/ and paternal grandfather age at dx 61 Father Hypertension Denies family history of Ovarian cancer Heart disease Hypercholesteremia Breast cancer Uterine cancer Thyroid disease Stroke Social History Smoking and tobacco status: never smoked Second hand smoke exposure: No Smoking risk assessment/counseling performed?: No Alcohol intake: never Desire information about alcohol rehabilitation?: No Counseling given: No Desire information about substance/drug rehabilitation?: No Counseling given: No Adopted: No Caregiver/support person: No Lives independently: Yes Household members: children Housing: House Marital status: Single Number of children: 1 service: No Current occupational status: employed Current occupation: [employer] Current occupational exposures/hazards: No Current gender identity: Female Course Vital Signs: Vital signs: Vital Signs Temperature 98.0 F 06/19/22 01:34 Pulse Rate 92 06/19/22 01:29 Respiratory Rate 18 06/19/22 01:29 Blood Pressure 106/69 06/19/22 01:29 Pulse Oximetry 95 06/19/22 01:29 Oxygen Delivery Me thod 06/18/22 20:55 MDM - Female Medical Decision Making This patient with uncertain as to whether she is or not presented to the emergency department because of the concerns about vaginal bleeding. She had some associated clotting and slightly more intense cramping than his usual with her periods. She was evaluated and found to have a nontender abdomen with no evidence of peritoneal signs etc. She did have a positive serum hCG and an pelvic ultrasound was obtained to give some predictive value to her current gestation. She remains clinically stable she will need serial quantitative hCGs and follow-up with her experimental welder. She will be given RhoGAM due to her Rh negativity. 22 year old female checked out to me by doctor Georgi at shift change. This young lady has a low serum quantitative indicative of early gestation. Intrauterine cannot be confirmed by ultrasound. the patient has a nontender abdomen and no significant pelvic free fluid or reactive signs of ectopic , Although, the possibility of early ectopic remains. She was counseled about this. She will follow up with her PCP for repeat quantitative HCG on Tuesday or Tuesday. She knows if she gets increasing pain, fever, vomiting, etc or worsening bleeding that is significant she is to return to the ER. Lab Data : 06/18/22 21:15 Radiology Impressions Pelvic/Transvag US 06/18/22 22:11 IMPRESSION: 1. Negative for intrauterine , patient remains at risk for ectopic if they are , close clinical correlation, serial beta HCG levels and follow-up ultrasound as clinically indicated advised. 2. Trace nonspecific fluid in the pelvis. Laboratory Results WBC 7.6 10^3/uL (4.0-10.0) 06/18/22 21:15 RBC 4.82 10^6/uL (4.1-5.3) 06/18/22 21:15 Hgb 14.2 g/dL (11.5-15.3) 06/18/22 21:15 Hct 43.1 % (37.0-47.0) 06/18/22 21:15 MCV 89.4 fl (81-99) 06/18/22 21:15 MCH 29.5 pg (28.0-34.0) 06/18/22 21:15 MCHC 32.9 g/dL (30.0-36.0) 06/18/22 21:15 RDW 12.1 % (12.1-15.1) 06/18/22 21:15 Plt Count 418 10^3/cmm (130-400) H 06/18/22 21:15 MPV 9.2 fL (7.4-10.4) 06/18/22 21:15 Neut % (Auto) 46.6 % 06/18/22 21:15 Lymph % (Auto) 46.6 % 06/18/22 21:15 Gilchrist % (Auto) 4.9 % 06/18/22 21:15 Eos % (Auto) 0.8 % 06/18/22 21:15 Baso % (Auto) 0.7 % 06/18/22 21:15 Neut # (Auto) 3.56 10^3/uL (1.8-7.7) 06/18/22 21:15 Lymph # (Auto) 3.6 10^3/uL (0.8-4.8) 06/18/22 21:15 Gilchrist # (Auto) 0.4 10^3/uL (0.2-0.9) 06/18/22 21:15 Eos # (Auto) 0.1 10^3/uL (0.0-0.8) 06/18/22 21:15 Baso # (Auto) 0.1 10^3/uL (0.0-0.1) 06/18/22 21:15 Nucleated RBC % (auto) 0 % 06/18/22 21:15 Nucleated RBCs # 0.0 /100WBC 06/18/22 21:15 HCG, Qual Positive (Negative) H 06/18/22 21:15 Urine Color Yellow (Yellow) 06/18/22 21:15 Urine Appearance Clear (CLEAR) 06/18/22 21:15 Urine pH 5 (5-7) 06/18/22 21:15 Ur Specific Mcgrath 1.025 (1.005-1.030) 06/18/22 21:15 Urine Protein Neg (Negative) 06/18/22 21:15 Urine Glucose (UA) Norm (Normal) 06/18/22 21:15 Urine Ketones Negative (Negative) 06/18/22 21:15 Urine Blood 3+ (Negative) H 06/18/22 21:15 Urine Nitrate Negative (Negative) 06/18/22 21:15 Urine Bilirubin Neg (Negative) 06/18/22 21:15 Urine Urobilinogen Norm mg/dL (Negative) 06/18/22 21:15 Ur Leukocyte Esterase Negative (Negative) 06/18/22 21:15 Urine RBC 0-4 /hpf (0-2) H 06/18/22 21:15 Urine WBC 0-4 /hpf (0-5) H 06/18/22 21:15 Ur Squamous Epith Cells 10-15 /hpf (0-5) H 06/18/22 21:15 Amorphous Sediment Not Reportable 06/18/22 21:15 Urine Bacteria 1+ /hpf (NONE) H 06/18/22 21:15 Urine Mucus Trace /hpf 06/18/22 21:15 Blood Type A Negative 06/18/22 21:55 Rho(D) Type Negative 06/18/22 21:55 Antibody Screen Negative 06/18/22 21:55 Discharge Plan Discharge Patient Disposition: Home Clinical Impression: Threatened Condition: Stable Prescriptions: No Action ketoconazole 2 % shampoo 1 applic topical DAILY Qty: 120 3RF Rx Instructions: Use as body wash x 3 weeks then 1 wk/mo. Allow to sit on skin 5 min. before rinsing. ciclopirox 0.77 % cream 1 applic topical BID 28 Days Qty: 90 2RF Rx Instructions: To chest, neck and back as directed. do not apply to nipples while nursing etonogestrel-ethinyl estradiol [NuvaRing] 0.12-0.015 mg/24 hr ring 1 vag ring vaginal .monthly Qty: 3 3RF Rx Instructions: Insert ring for three weeks; remove for one week for period. zonisamide 50 mg capsule 50 mg PO .at bedtime Qty: 30 2RF mupirocin 2 % ointment 1 applic topical BID Qty: 22 0RF Discharge Orders: Discharge ED (Routine); Ordered 06/19/22 Ordered By: Kiel Gallo Referrals: Adriana Braun, [facility] [Primary Care Provider] - 1-3 days Discharge Diet: Usual diet Discharge Activity: Increase activity as tolerated Activity Restrictions/Additional Instructions: Return for worsening pain, worsening vaginal bleeding, soaking a pad an hour for more than 3 hours, fever greater than 100, vomiting liquids or medications, any other concerning symptoms. See your doctor on Tuesday, for repeat blood test to make sure these numbers are going down. Repeat ultrasound may or may not be needed. Coding Level of Care Code ED Event Planning Intern for Chg Fwd Exam Comprehensive
[2022-06-18 21:37] LABS: Basophils # 0.1 10^3/uL (0.0-0.1); Basophils % 0.7 %; Eosinophils # 0.1 10^3/uL (0.0-0.8); Eosinophils % 0.8 %; Hematocrit 43.1 % (37.0-47.0); Hemoglobin 14.2 g/dL (11.5-15.3); Lymphocytes # 3.6 10^3/uL (0.8-4.8); Lymphocytes % 46.6 %; Mean Corpuscular HGB Conc 32.9 g/dL (30.0-36.0); Mean Corpuscular Hemoglobin 29.5 pg (28.0-34.0); Mean Corpuscular Volume 89.4 fl (81-99); Mean Platelet Volume 9.2 fL (7.4-10.4); Monocytes # 0.4 10^3/uL (0.2-0.9); Monocytes % 4.9 %; Neutrophils # 3.56 10^3/uL (1.8-7.7); Neutrophils % 46.6 %; Nucleated Red Blood Cells % 0 %; Platelet Count 418 10^3/cmm (130-400); Red Blood Count 4.82 10^6/uL (4.1-5.3); Red Cell Distribution Width 12.1 % (12.1-15.1); White Blood Count 7.6 10^3/uL (4.0-10.0)
[2022-06-18 21:50] LABS: Bilirubin Urine Neg (Negative); Blood Urine 3+ (Negative); Glucose Urine UA Norm (Normal); Ketones Urine Negative (Negative); Leukocyte Esterase Urine Negative (Negative); Nitrate Urine Negative (Negative); Protein Urine Neg (Negative); Specific Gravity, Urine 1.025 (1.005-1.030); Urine Appearance Clear (CLEAR); Urine Color Yellow (Yellow); Urobilinogen Urine Norm (Negative); pH Urine 5 (5-7)
[2022-06-18 21:51] LABS: Add Urine Culture? No; Add Urine Microscopic? YES; Bacteria Urine 1+ /hpf; HCG, Serum Qual Positive (Negative); Mucus Urine TRACE /hpf; RBC Urine 0-4 /hpf (0-2); WBC Urine 0-4 /hpf (0-5)
--- NOTE | 2022-06-18 22:11 | USR_ITS ---
PROCEDURE INFORMATION: Exam: US Nonobstetric Pelvis; Complete Exam date and time: 06/18/2022 11:14 PM Age: 22 years old Clinical indication: Other: Vaginal bleeding with positive hcg; Additional info: with vag bleeding TECHNIQUE: Imaging protocol: Transabdominal pelvic nonobstetric ultrasound. Complete exam. Real time ultrasound with image documentation. COMPARISON: US Pelvis Female [id number] 02/19/2019 12:32 AM FINDINGS: GESTATION: Gestation: Negative for intrauterine , patient remains at risk for ectopic if they are , close clinical correlation, serial beta HCG levels and follow-up ultrasound as clinically indicated advised. Uterus: Endometrial stripe is normal endovaginal imaging measuring 3.7 mm. Right ovary/adnexa: Ovary is normal. No mass. Normal blood flow. Left ovary/adnexa: Ovary is normal. No mass. Normal blood flow. Intraperitoneal space: Trace nonspecific fluid in the pelvis. Urinary bladder: Normal. US/US pelvic with transvaginal IMPRESSION: 1. Negative for intrauterine , patient remains at risk for ectopic if they are , close clinical correlation, serial beta HCG levels and follow-up ultrasound as clinically indicated advised. 2. Trace nonspecific fluid in the pelvis.
[2022-06-19 01:07] VITALS: PULSE 71; RESP 16; TEMP 36.6; O2SAT 99
[2022-06-19 01:29] VITALS: BP 106/69; PULSE 92; RESP 18; O2SAT 95
[2022-06-19 01:34] VITALS: TEMP 36.7
== END 2022-06-19 01:34 | disposition home or self-care (01) ==
PROVIDERS: Nurse Practitioner Family; Emergency Provider Emergency Medicine; PCP Nurse Practitioner
DX: O20.0 Threatened abortion (principal); Z3A.00 Weeks of gestation of pregnancy not specified
CPT/HCPCS: 36430; 76830; 76856; 81001; 84703; 85025; 86850; 86900; 90384; 99284

== ENCOUNTER → 2022-06-21 08:47 | Outpatient (BNVA) | payer BC, MEDICAID, SELFPAY | PROVIDERS: PCP Nurse Practitioner; Visit Provider Nurse Practitioner Family | DX: O20.0 Threatened abortion (principal) | CPT/HCPCS: 84702 ==

== ENCOUNTER → 2022-12-22 14:23 | Outpatient (BNVA) | payer BC, MEDICAID, SELFPAY | PROVIDERS: PCP Nurse Practitioner; Visit Provider Nurse Practitioner Women's Health | DX: Z30.9 Encounter for contraceptive management, unspecified (principal); R87.618 Other abnormal cytological findings on specimens from cervix uteri | CPT/HCPCS: 84315; 88175 ==

== ENCOUNTER → 2023-05-24 09:25 | Outpatient (BNVA) | payer BC, MEDICAID, SELFPAY | PROVIDERS: PCP Nurse Practitioner; Visit Provider Nurse Practitioner Family | DX: Z32.01 Encounter for pregnancy test, result positive (principal) | CPT/HCPCS: 80053; 84443; 84702; 85025 ==

== ENCOUNTER 2023-11-01 07:52 | Oncology outpatient (recurring) (ONCR) | payer BC, MEDICAID, SELFPAY ==
--- OUTSIDE RECORDS SUMMARY | 2023-10-31 11:26 | XMS_ITS | Patient Health Record ---
Author Name Unknown Organization [facility] Address [address] [place] [address] Care Team Providers Care Necktie Turner Name Role Phone [facility] Primary Care Provider [facility] Unavailable [phone] ALLERGIES Allergen (clinical drug ingredient) Drug/Non Drug Allergy documented on EMR Reaction Allergy Type Onset Date Status Penicillin Unknown Drug Allergy Active REASON FOR REFERRAL No Information MEDICATIONS Medication SIG (Take, Route, Frequency, Duration) Notes Start Date End Date Status busPIRone HCl 10 MG 1/2 - 1 tablet Orall y Twice a day prn anxiety for 30 days Active CeleXA 10 MG 1 tablet Orally Once a day for 30 day(s) Active Zonisamide 50 MG TAKE ONE CAPSULE BY MOUTH At Bedtime Diagnosis Unavailable Oral for 30 Active Etonogestrel-Ethinyl Estradiol 0.12-0.015 MG/24HR _insert ONE ring VAGINALLY FOR THREE WEEKS, THEN REMOVE FOR ONE WEEK during period Diagnosis Unavailable Vaginal for 28 Not-Taking SOCIAL HISTORY Tobacco Use: Social History Observation Description Date Details (start date - stop date) Never Smoker NA - NA Sex Assigned At : Social History Observation Description Sex Assigned At Unknown Tobacco Use/Smoking Question Answer Notes Are you a nonsmoker PROBLEMS Problem Type ICD Code Onset Dates Problem Status W/U Status Risk SNOMED Code Notes Problem Anxiety (F41.9) Active confirmed 804468 02 Problem Other depression (F32.89) Active confirmed [id number] PLAN OF TREATMENT No Information Insurance Providers Payer Name Payer Address Payer Phone Subscriber Number Group Number Insured Name Patient Relationship to Insured Coverage Start Date Coverage End Date DO NOT USE [employer] [address] [address] [place] [address] [phone] [id number] Audelia Herrera Self - patient is the insured MEDICAL (GENERAL) HISTORY Medical History History ICD Code miscarriage Surgical History Surgery Date(Month/Year) wisdom teeth extraction Hospitalization History Reason Date(Month/Year) miscarriage childbirth
--- OUTSIDE RECORDS SUMMARY | 2023-11-01 07:55 | XMS_ITS | Patient Health Record ---
Author Name Unknown Organization [facility] Address [address] [place] [address] Care Team Providers Care Stopper Setter Name Role Phone [facility] Primary Care Provider [facility] Unavailable [phone] ALLERGIES Allergen (clinical drug ingredient) Drug/Non Drug [...] Code Notes Problem Anxiety (F41.9) Active confirmed 617831 02 Problem Other depression (F32.89) Active confirmed [id number] PLAN OF TREATMENT No Information Insurance Providers Payer Name Payer Address Payer Phone Subscriber Number Group Number Insured Name Patient Relationship to Insured Coverage Start Date Coverage End Date DO NOT USE [employer] [address] [address] [place] [address] [id number] Audelia Herrera Self - patient is the insured MEDICAL (GENERAL) HISTORY Medical History History ICD Code miscarriage Surgical History Surgery Date(Month/Year) wisdom teeth extraction Hospitalization History Reason Date(Month/Year) miscarriage childbirth
--- OUTSIDE RECORDS SUMMARY | 2023-11-01 07:55 | XMS_ITS | Continuity of Care Document ---
Author Name Unknown Organization [facility] Address [id number] [address] Phone Care Team Providers Care Choral Teacher Name Role Phone Louis Mosley DDS Unavailable Unavailabl e Allergies, Adverse Reactions, Alerts Substance Reaction Status Criticality PENICILLIN Active No Information Medications Medication Instructions Dosage Effective Dates (start - stop) Status Comments chlorhexidine gluconate 0.12 % mouthwash place 15 milliliter by mouth (after meals), swish one minute then spit out - Active Start on 3rd day after surgery, use salt/water first 3 days. clonazepam 1 mg tablet Take 1 (one) tablet 1 (one) hour prior to procedure. - Active ibuprofen 800 mg tablet take 1 tablet by oral route 3 times every day with food 800 MG - Active Anti-inflamm zo ry caused by Oral Surgery, Do not used more than 3000mg per day. Percocet 5 mg-325 mg tablet take 1 (one) tablet by oral route 1 (one) hour prior to procedure. Take 1 (one) tab q6h PRN pain after surgery. - Active Procedures Procedure Date Non-Intravenous Conscious Sedation Removal Of Impacted Tooth ??? Partially Bony Removal Of Impacted Tooth ??? Partially Bony Removal Of Impacted Tooth ??? Partially Bony Removal Of Impacted Tooth ??? Completely Bony EDR Approval Note Limited Oral Evaluation ??? Problem Focu sed EDR Approval Note Advance Directives Directive Yes / No Effective Date File Name No Information Encounters Encounter Description Practice Location Reason(s) For Visit Diagnoses Date Provider Providers Copied on Encounter [facility], [id number] [facility], [place], [place], [id number], [place] tel:[phone] [facility] No Information Dimitri Myers. [address] [place] [address], [address], [place]. tel:[phone] Referring Provider: Louis Mosley, [address] [place] [address], [address]. tel:[phone] [facility], [id number] [facility], [place], [place], [id number], [place] tel:[phone] [facility] No Information Dimitri Myers. [address] [place] [address], [address], [place]. tel:[phone] Referring Provider: Louis Mosley, [address] [place] [address], [address]. tel:[phone] Family History Family Member Type Diagnosis Age At Onset No Information Payers Payer name Insurance type Covered green party ID Sravanthi mckeon(s) Agustin [employer] [id number] Social History Type Description Quantity Date Captured Comments Sex Female Smoking Status No Information Chief Complaint And Reason For Visit No Information Reason For Referral Reason For Referral No Information History Of Present Illness Encounter Date Complaint History Of Prese nt Illness No Information Functional Status Date Functional Assessmen t No Information Instructions Date Instruction Additional Infor mation No Information Assessments Type Assessment Date No Information Patient Care Teams Name Effective Dates (start - stop) Status Members No Information
[2023-11-01 08:07] VITALS: BP 109/71; PULSE 93; RESP 16; TEMP 36.8; O2SAT 98
[2023-11-01 10:43] VITALS: BP 103/72; PULSE 78; RESP 16; TEMP 36.7; O2SAT 98
[2023-11-01 11:12] VITALS: BP 106/73; PULSE 79; RESP 16; TEMP 36.8; O2SAT 97
== END 2023-11-23 23:59 | disposition home or self-care (01) ==
LOC: ONCMED 07:53
PROVIDERS: PCP Nurse Practitioner; Visit Provider Family Medicine
DX: O26.899 Other specified pregnancy related conditions, unspecified trimester (principal); Z67.91 Unspecified blood type, Rh negative
CPT/HCPCS: 36415; 36430; 86850; 86900; 90384

== ENCOUNTER 2024-01-14 22:23 | Outpatient (CLI) | payer BC, MEDICAID, SELFPAY ==
[2024-01-14 22:23] VITALS: BMI 30.7
[2024-01-14 22:34] VITALS: BP 112/69; PULSE 87; TEMP 36.6
[2024-01-14 22:45] VITALS: BP 111/68; PULSE 78
[2024-01-14 22:55] VITALS: BP 105/56; PULSE 83
[2024-01-14 23:07] VITALS: BP 115/66; PULSE 78
[2024-01-15 00:03] VITALS: BP 117/62; PULSE 75
[2024-01-15 00:18] VITALS: BP 108/65; PULSE 77
[2024-01-15 01:37] VITALS: BP 113/71; PULSE 90
[2024-01-15 01:45] VITALS: BP 113/71; PULSE 90; RESP 18; TEMP 36.4
== END 2024-01-15 01:53 | disposition home or self-care (01) ==
LOC: OPOB 22:23 → OBGYN 22:24
PROVIDERS: PCP Nurse Practitioner; Visit Provider Family Medicine
DX: O26.899 Other specified pregnancy related conditions, unspecified trimester (principal); Z3A.00 Weeks of gestation of pregnancy not specified; R10.9 Unspecified abdominal pain
CPT/HCPCS: 59025; 99211

== ENCOUNTER 2024-01-15 21:54 | Inpatient (IN) | payer BC, MEDICAID, SELFPAY ==
[2024-01-15] VITALS (30 sets, daily range): BP systolic 96–131; BP diastolic 52–81; PULSE 83–107; RESP 16; TEMP 36.8; O2SAT 96–100; BMI 29.6
[2024-01-15 19:25] LABS: Basophils % 0.2 %; Hematocrit 39.1 % (36-47); Lymphocytes # 2.3 10^3/uL (0.8-4.8); Lymphocytes % 10.5 %; Mean Corpuscular HGB Conc 32.2 g/dL (30-55); Mean Corpuscular Hemoglobin 28.8 pg (27-33); Mean Corpuscular Volume 89.3 fl (85-98); Mean Platelet Volume 10.2 fL (7.4-10.4); Monocytes # 0.9 10^3/uL (0.2-0.9); Monocytes % 4.3 %; Neutrophils # 18.04 10^3/uL (1.8-7.7); Neutrophils % 83.8 %; Nucleated Red Blood Cells % 0 %; Platelet Count 252 10^3/cmm (157-399); Red Blood Count 4.38 10^6/uL (3.85-5.65); Red Cell Distribution Width 13.5 % (12.1-15.1); White Blood Count 21.51 10^3/uL (3.29-11.43)
[2024-01-15] MEDS: lactated ringers 1,000 ML 999 ML IV (19:40)
--- NOTE | 2024-01-15 20:53 | P.ANESASSM_ITS ---
Pre-Anesthetic Assessment Height/Weight: Height 1.57 m Weight 73.482 kg Temp Pulse Resp BP O2 Del Method 98.2 F 91 16 110/65 Room Air 01/15/24 20:15 01/15/24 20:29 01/15/24 17:44 01/15/24 20:29 01/15/24 19:47 Preop Diagnosis: Labor pain epidural Familial anesthetic complications: none Was Beta Joaquim taken within 24 hours: N/A Was Clonidine taken within 24 hours: N/A Social No alcohol and No tobacco Exam alert, oriented x 3, clear to auscultation bilaterally and regular rate & rhythm Airway Submandibular: within normal limits Cervical ROM: within normal limits Mallampati: Class II Dentition: full History/ROS Other Pulmonary None reported CV/HEM None reported Hepatic None reported GI None reported Metabolic None reported Musc/skel None reported Neuropsych None reported Anesthetic Plan ASA status: 2 Anesthesia: Regional (specify below) Risk of > 500 ml blood loss (7ml/kg in children): No Medications/Allergies Home Medications Medication Instructions Recorded Confirmed Last Taken Type No Known Home Medications 01/15/24 01/15/24 Unknown History Allergies Allergy/AdvReac Type Severity Reaction Status Date / Time Penicillins AdvReac rash--Never Verified 01/15/24 01:39 took Keflex Current Medications Generic Name Dose Route Start Last Admin Trade Name Freq PRN Reason Stop Dose Admin Lactated Ringer's 1,000 mls @ 999 mls/hr 01/15/24 19:12 01/15/24 19:40 Lactated Ringers IV 999 mls/hr .Q1H1M PRN Administration See label comments [facility] Anesthesia Medical History Decreased hearing of right ear Decreased hearing in right ear after she jumped off a height into a pool and hurt her ear She can still hear although not very well. Generalized anxiety disorder GERD (gastroesophageal reflux disease) Symptomatic since 2018 and has been on omeprazole. Has not had an endoscopy done. Migraine no aura. States that she has pretty bad headaches and was told they were migraines by a neurologist and was asked to take propanolol in the past which did not help and symptoms are controlled on Tylenol as needed. No pertinent past medical history Denies diabetes, asthma, hypertension, seizures, DVT/PE PCP: None Surgical History No history of previous surgery Family History Family/Other Diabetes Maternal Aunt with type 1 DM Colon cancer Paternal Great Grandfather--dx age 60/ and paternal grandfather age at dx 61 Father Hypertension Denies family history of Ovarian cancer Heart disease Hypercholesteremia Breast cancer Uterine cancer Thyroid disease Stroke Social History Smoking and tobacco/nicotine status: never used tobacco/nicotine Second hand smoke exposure: No Alcohol intake: never Substance/Drug Use: never Adopted: No Caregiver/support person: No Lives independently: Yes Household members: children Housing: House Marital status: Single Number of children: 1 service: No Current occupational status: employed Current occupation: [employer] Current occupational exposures/hazards: No Do you think of yourself as: Straight/Heterosexual Current gender identity: Female Female Reproductive History : 4 Data Anesthesia 01/15/24 19:10 Short CBC 01/15/24 Range/Units 19:10 WBC 21.51 H (3.29-11.43) 10^3/uL Hgb 12.60 (11.27-16.99) g/dL Hct 39.1 (36-47) % MCV 89.3 (85-98) fl Plt Count 252 (157-399) 10^3/cmm Neut % (Auto) 83.8 % Neut # (Auto) 18.04 H (1.8-7.7) 10^3/uL Blood Bank 01/15/24 19:10 Blood Type A Negative Rho(D) Type Rh negative Antibody Screen Positive Cardiac Studies: 2 Holter Monitor 10/25/23
[2024-01-15] MEDS: ROPivacaine syringe 100 MG/50 ML SYRINGE 13 MG EPIDURAL (21:13)
--- NOTE | 2024-01-15 21:23 | ANES.PROC ---
Anesthesia Procedures Procedure/Date: 01/15/24 epidural Procedure Narrative: epidural complete, bolus given, epidural pump initiated with VENEER JOINER education given, vitals taken during procedure and satisfactory throughout, patient admits to decrease pain, report of procedure to OB RN Epidural: Time Out Performed: Yes Consents Signed: Procedure Consent Consent: requested by attending/covering physician, from patient, risks and benefits reviewed and patient agrees to proceed Lumbar Level: L3-L4 Epidural position: sitting Epidural procedure: sterile prep of area, 1% lidocaine to numb the area (3 mL), 18 g needle, negative for paresthesia passed, neg for paresthesia, test dose given, 1.5% xylocaine 1:200k epi (5 mL), 0.2% Ropivacaine bolus ml (5 mL), placed PCEA, no systemic response, sterile dressing applied, L.U.D. no apparent complications and 0.2% Ropiavacaine @ mls/hr (13 mL/hr)
[2024-01-15] MEDS: dextrose 5%-lactated ringers 1,000 ML 125 ML IV (22:09)
[2024-01-16] VITALS (56 sets, daily range): BP systolic 89–127; BP diastolic 51–86; PULSE 78–123; RESP 16; TEMP 36.7–36.8; O2SAT 97–100
[2024-01-16] MEDS: oxytocin 30 UNIT/500 ML BAG IV (00:15)
[2024-01-16] MEDS: ROPivacaine syringe 100 MG/50 ML SYRINGE 13 MG EPIDURAL ×2 (03:44)
--- NOTE | 2024-01-16 05:33 | PM.OPHPUD ---
Labor & Delivery H&P Update Date of Procedure: January 16, 2024 Date H&P Performed: 01/12/24 Admission Diagnosis: Preop diagnosis: Labor pain Planned procedure: Expectant management of labor and delivery
--- NOTE | 2024-01-16 05:34 | PM.DELIVERY ---
Delivery Note: Date of delivery: January 16, 2024 Pre-delivery diagnoses: IUP at 39 weeks 6 days gestation in active labor Procedure: Normal spontaneous vaginal delivery Delivering Physician: Rosibel Thompson MD Estimated blood loss (mL): 300 Findings: Vertex female infant weight 3000 g, Apgars 8 and 9. Pre-Delivery Course: The patient had routine care at [facility]. There were no complications during the . labs: Blood type a negative, antibody negative, hepatitis B nonreactive, hepatitis C nonreactive, HIV nonreactive, rubella immune, GC chlamydia negative, RPR nonreactive, UDS negative, she passed her glucose tolerance test, she received RhoGAM, she was GBS negative. Delivery: This is a 23-year-old G3, P1 at 39 weeks 6 days gestation who was admitted in active labor. She received an epidural for pain management. After her epidural her contractions spaced out significantly so she was then started on Pitocin. She had spontaneous rupture of membranes with clear fluid less than an hour prior to delivery. She had a normal spontaneous vaginal delivery of a viable female infant weight 3000 g, Apgars 8 and 9, over an intact perineum. The infant was suctioned at delivery and placed on the mother's chest. The cord was clamped and cut. The placenta was delivered grossly intact and normal to inspection. There was a second-degree laceration that was sutured using 3-0 chromic. Mother and were doing well after delivery. History History History 2 Term 1 0 Miscarriages/Ectopic 1 Living Children 1 Coding Level of Care Code Acute Code for Chg Fwd
[2024-01-16] MEDS: ondansetron 2 mg/ML SDV 2 mL 4 MG IVP (05:36)
[2024-01-16] MEDS: acetaminophen 325 mg Tablet 650 MG PO (06:34)
[2024-01-16] MEDS: ibuprofen 800 mg tablet PO ×3 (09:20→20:41)
[2024-01-16] MEDS: docusate sodium 100 mg Capsule PO ×2 (09:20→20:41)
[2024-01-16] MEDS: lanolin oint 7 gm 1 APPLIC TOPICAL (10:21)
[2024-01-16] MEDS: benzocaine-menthol 78 gm Canister 1 SPRAY TOPICAL (10:21)
[2024-01-16 19:56] LABS: Hematocrit 28.1 % (36-47); Mean Corpuscular HGB Conc 32.4 g/dL (30-55); Mean Corpuscular Hemoglobin 29.5 pg (27-33); Mean Corpuscular Volume 91.2 fl (85-98); Mean Platelet Volume 10.5 fL (7.4-10.4); Platelet Count 200 10^3/cmm (157-399); Red Blood Count 3.08 10^6/uL (3.85-5.65); Red Cell Distribution Width 13.8 % (12.1-15.1)
[2024-01-17 04:45] VITALS: BP 112/84; PULSE 85; RESP 16; TEMP 36.9; O2SAT 98
[2024-01-17] MEDS: acetaminophen 325 mg Tablet 650 MG PO (05:09)
--- NOTE | 2024-01-17 08:00 | ANE.PACU2 ---
Inpatient post-anesthesia follow up: Airway intact: Yes Vital signs: Temperature 98.0 F Pulse Rate 82 Respiratory Rate 16 Blood Pressure 99/52 Pulse Oximetry 98 Oxygen Delivery Me thod Room Air Oxygen Flow Rate Fraction of Inspir ed Oxygen Hydration adequate: Yes Nausea and vomiting: No Pain level: 1 Mental status: Baseline Epidural Start/End: Epidural Start Date: 01/15/24 Epidural Start Time: 21:02 Epidural End Date: 01/16/24 Epidural End Time: 08:05
[2024-01-17] MEDS: docusate sodium 100 mg Capsule PO (08:55)
[2024-01-17] MEDS: ibuprofen 800 mg tablet PO (08:55)
[2024-01-17 10:38] VITALS: BP 99/82; PULSE 79; RESP 16; TEMP 36.7
--- NOTE | 2024-01-17 12:00 | PM.DCS ---
Discharge Providers Date of Admission: 01/15/24 21:54 Date of Discharge: January 17, 2024 Attending Provider at Admission: Rosibel Thompson MD Attending Provider at Discharge: Rosibel Thompson MD Primary Care Provider: OSMEL Leon Reason for Visit Reason for Visit: Contractions Hospital Course Hospital Course This is a 23-year-old G3 now P2 who was admitted in active labor. She had a normal spontaneous vaginal delivery of a viable female . She has done well . She is ambulating, tolerating a regular diet, has average vaginal bleeding and is comfortable with discharge home Physical Exam Narrative: Sitting up in bed, alert and oriented, heart regular rate and rhythm, lungs clear to auscultation bilaterally, abdomen is soft and fundus is firm, extremities have trace edema but no calf tenderness Urinary Catheter Management: Razo: Cath Placed During This Visit: yes Urinary Catheter Date of Insertion: 01/15/24 Urinary Catheter Time of Insertion: 21:45 Discharge Data Studies Completed and Pending Laboratory Results WBC 15.30 10^3/uL (3.29-11.43) H 01/16/24 19:21 RBC 3.08 10^6/uL (3.85-5.65) L 01/16/24 19:21 Hgb 9.10 g/dL (11.27-16.99) L 01/16/24 19:21 Hct 28.1 % (36-47) L 01/16/24 19:21 MCV 91.2 fl (85-98) 01/16/24 19:21 MCH 29.5 pg (27-33) 01/16/24 19:21 MCHC 32.4 g/dL (30-55) 01/16/24 19:21 RDW 13.8 % (12.1-15.1) 01/16/24 19:21 Plt Count 200 10^3/cmm (157-399) 01/16/24 19:21 MPV 10.5 fL (7.4-10.4) H 01/16/24 19:21 Neut % (Auto) 83.8 % 01/15/24 19:10 Lymph % (Auto) 10.5 % 01/15/24 19:10 [place] % (Auto) 4.3 % 01/15/24 19:10 Eos % (Auto) 0.0 % 01/15/24 19:10 Baso % (Auto) 0.2 % 01/15/24 19:10 Neut # (Auto) 18.04 10^3/uL (1.8-7.7) H 01/15/24 19:10 Lymph # (Auto) 2.3 10^3/uL (0.8-4.8) 01/15/24 19:10 [place] # (Auto) 0.9 10^3/uL (0.2-0.9) 01/15/24 19:10 Eos # (Auto) 0.0 10^3/uL (0.0-0.8) 01/15/24 19:10 Baso # (Auto) 0.0 10^3/uL (0.0-0.1) 01/15/24 19:10 Nucleated RBC % (auto) 0 % 01/15/24 19:10 Nucleated RBCs # 0.0 /100WBC 01/15/24 19:10 Blood Type A Negative 01/15/24 19:10 Rho(D) Type Rh negative 01/15/24 19:10 Antibody Screen Positive 01/15/24 19:10 Antibody Identification Anti-D 01/15/24 19:10 Vitals Last Vital Signs Temp 98.1 F 01/17/24 10:38 Pulse 79 01/17/24 10:38 Resp 16 01/17/24 10:38 BP 99/82 01/17/24 10:38 Pulse Ox 98 01/17/24 04:45 O2 Del Method Room Air 01/17/24 04:45 Discharge Plan Discharge Patient Disposition: Home Condition: Stable Prescriptions: New ferrous sulfate 325 mg (65 mg iron) tablet,delayed release (DR/EC) 325 mg PO DAILY Qty: 30 1RF Discharge Orders: Discharge Order (Routine); Ordered 01/17/24 Ordered By: Rosibel Thompson Referrals: Rosibel Thompson MD [Physician] - 1 month Discharge Diet: Usual diet Discharge Activity: Limit activity as instructed Patient Instructions: Depression (DC), Perineal Care (DC), Opioid Safety (DC), Preeclampsia and Eclampsia After Delivery (GEN), Breast Care for the Mother (DC), Hemorrhage (DC), OB Discharge Report, OB Food/Drug Interaction Guide, OB Care at Home, Opioid Safety, OB Vaginal Deliveries, Abnormal Bleeding Activity Restrictions/Additional Instructions: Nothing per vagina for 6 weeks. Discharge Attestations Time Spent in Discharge Care*: less than 30 min Quality Metrics Clinical Quality Measures [ No reported AMI, CVA or VTE this stay] Coding Level of Care Code Acute Code for Chg Fwd
[2024-01-17 14:30] VITALS: BP 99/52; PULSE 82; RESP 16; TEMP 36.7; O2SAT 98
== END 2024-01-17 14:38 | disposition home or self-care (01) | DRG 807 ==
LOC: OPOB 21:54 → OBGYN 21:54
PROVIDERS: Admitting Provider Family Medicine; PCP Nurse Practitioner; Visit Provider Family Medicine
DX: O70.1 Second degree perineal laceration during delivery (principal); Z37.0 Single live birth; Z3A.39 39 weeks gestation of pregnancy
CPT/HCPCS: 36415; 51702; 59025; 59409; 80503; 85025; 85027; 86850; 86870; 86900; 96374; 99211; J2405; J2590; J2795; J7120; J7121

== ENCOUNTER → 2024-05-31 09:58 | Outpatient (BNVA) | payer BC, MEDICAID, SELFPAY | PROVIDERS: PCP Nurse Practitioner; Visit Provider Nurse Practitioner | DX: K21.9 Gastro-esophageal reflux disease without esophagitis (principal); F41.1 Generalized anxiety disorder | CPT/HCPCS: 80053; 84443; 85025 ==

== ENCOUNTER 2024-09-02 10:33 | Emergency (ER) | payer BC, MEDICAID, SELFPAY ==
[2024-09-02 10:37] VITALS: BP 134/65; PULSE 77; RESP 16; TEMP 36.6; O2SAT 97; BMI 23.0
--- NOTE | 2024-09-02 11:06 | ECG_ITS ---
[employer] Test Date: 2024-09-02 Pat Name: Audelia Herrera Department: Room: Gender: Female Parts Coordinator: : 2000 Requested By: Blas Laureano Order Number: [id number] Agustin MD: Alessandro Head M.D. Measurements Intervals [place] Rate: 78 P: 72 ME: 119 QRS: 70 QRSD: 85 T: 55 QT: 385 QTc: 440 Interpretive Statements SINUS RHYTHM WITH SINUS ARRHYTHMIA WITH SHORT ME INTERVAL NONSPECIFIC T-WAVE ABNORMALITY No previous ECG available for comparison Electronically Signed On 09-02-2024 14:00:15 [employer] by Alessandro Head M.D. [email or web address]
--- NOTE | 2024-09-02 11:06 | USR_ITS ---
PROCEDURE INFORMATION: Exam: US Abdomen, Limited; Right Upper Quadrant Exam date and time: 09/02/2024 11:54 AM Age: 24 years old Clinical indication: Abdominal pain; Epigastric; Additional info: Right upp quad pain and vomting TECHNIQUE: Imaging protocol: Real time ultrasound of the abdomen with image documentation. Limited exam focused on the right upper quadrant. COMPARISON: [place] [id number] 09/28/2023 4:03 PM FINDINGS: Liver: Normal. No masses. Gallbladder: Normal. No gallstones. There is no gallbladder wall thickening. Biliary ducts: Normal. No stones. No dilation. The common bile duct measures 2 mm. Pancreas: Visualized pancreas is unremarkable. Right kidney: Normal. No mass. No hydronephrosis. The right kidney measures 8.6 cm in length and is normal in echotexture. US/US gall bladder [id number] IMPRESSION: No acute findings.
--- NOTE | 2024-09-02 11:06 | XRR_ITS ---
PROCEDURE INFORMATION: Exam: XR Chest Exam date and time: 09/02/2024 11:14 AM Age: 24 years old Clinical indication: Chest pressure; Patient HX: PT presents with n/v, SOB, and chest pain. Patient states that she has been sick for the last 3 days. Patient states vomitting and headache. Patient also states feelings of shakiness. Patient unable to keep food or drink down. Patent airway, unlabored respirations, and appropriate color. ; Additional info: Cp TECHNIQUE: Imaging protocol: Radiologic exam of the chest. Views: 1 view. COMPARISON: CR XR chest 1V [id number] 06/05/2018 5:27 PM FINDINGS: Lungs: Unremarkable. No consolidation. Pleural spaces: Unremarkable. No pleural effusion. No pneumothorax. Heart/Mediastinum: Unremarkable. No cardiomegaly. Bones/joints: Unremarkable. XR/XR chest 1V portable [id number] IMPRESSION: No acute findings.
--- NOTE | 2024-09-02 11:07 | ED_ITS ---
HPI - Arrhythmia/Palpitations 2 General: Chief Complaint: Shortness of Breath/Dyspnea Stated Complaint: CP, SOB, Vomitting, weak Time Seen by Provider: 09/02/24 10:41 Source: patient and family Mode of arrival: ambulatory Limitations: no limitations History of Present Illness: Patient is here because she is having episodes of spontaneous vomiting and which seems to be associated with both liquids and solids. She states it has been going for the last couple of days. She states she is lost approximately 6 pounds. She states she has not been successful in eating very much and states her urine output is less than normal. She also has a sensation of palpitations over the past couple of days as well. She states that the palpitations have always been with her since childhood they were never limiting. She states she did have them for a short period of time they would go away and she would resume her full activity. 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 She has had 2 children and states that she had thyroid functions checked during her pregnancies and they were little elevated but then they resume back to normal. She denies any recent illness to include exposure to infectious disease other than URI symptoms in both of her children. Stepmother who is present also states that her father has a history of palpitations. Patient denies any energy drinks her last menstrual period was 1 month ago she denies any other concomitant symptoms at this time. She states she has had no history of gallbladder disease but there is gallbladder disease present in her family. She also relates that she took a beta-pancho for a while but did not seem to make much difference so she has not taken that for a long time. Associated symptoms: Reports nausea and vomiting; Deny anxiety Related Data Home Medications Medication Instructions Recorded Confirmed acetaminophen 325 mg tablet 650 mg PO QID PRN pain\ 09/02/24 09/02/24 (Tylenol) Previous Rx's Medication Instructions Recorded etonogestrel 0.12 mg-ethinyl 1 vag ring vaginal .monthly #3 ea 05/25/24 estradiol 0.015 mg/24 hr vaginal ring (NuvaRing) famotidine 20 mg tablet (Pepcid) 20 mg PO BID 2 weeks #28 tabs 09/02/24 Allergies Allergy/AdvReac Type Severity Reaction Status Date / Time Penicillins AdvReac rash--Never Verified 05/25/24 13:52 took Keflex Review of Systems 2 Const: Denies: fever(s) or chills ENMT: Denies: throat pain, odynophagia, nasal discharge or nasal congestion Resp: Denies: dyspnea, productive cough or non-productive cough GI: Reports: nausea and vomiting; Denies: hematemesis, hematochezia or melena : Reports: oliguria; Denies: difficulty voiding, dysuria or urinary frequency Musc: Denies: neck pain, back pain or extremity pain Skin/Breast: Denies: rash Neuro: Denies: headache(s), numbness in extremities or weakness in extremities Psych: Denies: anxiety or depression [place]vin/Lymph: Denies: easy bruising or easy bleeding PFSH ED 2 PFSH: Medical History Heart palpitations No pertinent past medical history Denies diabetes, asthma, hypertension, seizures, DVT/PE PCP: None Generalized anxiety disorder GERD (gastroesophageal reflux disease) Symptomatic since 2018 and has been on omeprazole. Has not had an endoscopy done. Decreased hearing of right ear Decreased hearing in right ear after she jumped off a height into a pool and hurt her ear She can still hear although not very well. Migraine no aura. States that she has pretty bad headaches and was told they were migraines by a neurologist and was asked to take propanolol in the past which did not help and symptoms are controlled on Tylenol as needed. Surgical History No history of previous surgery Family History Family/Other Diabetes Maternal Aunt with type 1 DM Colon cancer Paternal Great Grandfather--dx age 60/ and paternal grandfather age at dx 61 Father Hypertension Denies family history of Ovarian cancer Heart disease Hypercholesteremia Breast cancer Uterine cancer Thyroid disease Stroke Social History Smoking and tobacco/nicotine status: never used tobacco/nicotine Second hand smoke exposure: No Alcohol intake: never Substance/Drug Use: never Adopted: No Caregiver/support person: No Lives independently: Yes Household members: children Housing: House Marital status: Single Number of children: 2 service: No Current occupational status: employed Current occupation: [employer] Current occupational exposures/hazards: No Do you think of yourself as: Straight/Heterosexual Current gender identity: Female Physical Exam 2 Narrative: EXAM NARRATIVE: She is alert in no acute distress cooperative during the evaluation. Const: COMMON NORMALS: no acute distress, average body habitus and patient oriented x3 GENERAL APPEARANCE: cooperative HENMT: COMMON NORMALS: normocephalic, Normal nasal mucous membranes and turbinates present, moist oral mucous membranes and oropharynx normal HEAD & SCALP: normocephalic NOSE: Normal nasal mucous membranes and turbinates present Eye: COMMON NORMALS: Equal, round and reactive pupils present, EOMs intact bilaterally, conjunctivae normal and no scleral icterus CONJUNCTIVA: Yes conjunctivae normal PUPIL: Yes Equal, round and reactive pupils present Neck/C-Spine: COMMON NORMALS: full ROM, no lymphadenopathy, supple and Thyroid normal THYROID: Thyroid normal Chest: COMMONS NORMALS: normal inspection of the chest and normal palpation of entire chest wall Resp: COMMON NORMALS: normal respiratory effort, No retractions, No use of accessory muscles and clear to auscultation bilaterally AUSCULTATION: clear to auscultation bilaterally Cardio: COMMON NORMALS: regular rate, regular rhythm, No murmurs present (Cardio) and Peripheral pulses 2+ throughout RATE: regular rate RHYTHM: r egular rhythm PERIPHERAL PULSES: Peripheral pulses 2+ throughout GI: COMMON NORMALS: Normal to inspection, nondistended, normoactive bowel sounds present, Soft to palpation, No hepatosplenomegaly present and no masses PALPATION: Yes Soft to palpation, Yes Tenderness to palpation present (GI) Details: RUQ and Yes No hepatosplenomegaly present : COMMON NORMALS: Yes no CVA tenderness BLADDER/KIDNEY EXAM: Yes no CVA tenderness Back/Pelvis: COMMON NORMALS: no CVA tenderness, thoracic and lumbar spine normal to inspection, no thoracic nor lumbar tenderness, thoraco-lumbar ROM normal and straight leg raise negative bilaterally Extremity: COMMON NORMALS: normal to inspection, full ROM, no calf tenderness and no pedal edema Neuro: COMMON NORMALS: patient oriented x3, moves all extremities, no focal motor deficits and no sensory deficits noted Psych: COMMON NORMALS: mental status grossly normal Skin: COMMON NORMALS: no rashes or lesions noted, turgor normal and no jaundice GENERAL SKIN EXAM: no rashes or lesions noted and turgor normal Course 2 Reevaluation(s): Reevaluation #1: Patient received IV fluids. She is stable and not displayed any tachycardia or arrhythmias while in the emergency department. Time: 13:32 Reevaluation #2: Patient continues to do well. She is appears to be comfortable and appropriately interactive. She has tolerated oral liquids in the emerged part without any episodes of emesis or stomach pain etc. Spent some time discussing current findings and the reassuring nature. Her VBG does show that she has been improving CO2 which was likely low on her chemistries due due to hyperventilation. There is no other reason for her to have a and anion gap. Given her gallbladder ultrasound is negative and she does admit that she has had increased acid production and heartburn symptoms likely some on acknowledge stressors have played a role in her life which her stepmother acknowledges during this later conversation. Will start her on a course of Pepcid twice daily for the next 2 weeks and have her follow with her primary care to assess her and make medication changes as indicated. Time: 14:27 Vital Signs: Vital signs: Vital Signs Temperature 97.8 F 09/02/24 10:37 Pulse Rate 83 09/02/24 14:14 Respiratory Rate 15 09/02/24 14:14 Blood Pressure 120/63 09/02/24 14:14 Pulse Oximetry 99 09/02/24 14:14 Oxygen Delivery Me thod Room Air 09/02/24 14:14 MDM - Arrhythmia/Palpitations Medical Decision Making This patient presented to the emergency department with symptoms as noted in the HPI. Certainly could be that she is having episodes of palpitations but it also suggests differential which includes gallbladder disease, peptic ulcer disease, acid reflux etc. Laboratories were notable for a low carbon oxide level and a elevated anion gap consistent with that low carbon dioxide level. VBG was obtained later which showed some resolution of her CO2 indicating that likely episode of hyperventilation was has been either involved recently or ongoing in her symptoms complex. The patient remained stable in the emergency department received IV fluid hydration H2 blockers as well as displayed ability to take oral fluids. She did show a shortened NE interval on her resting EKG but did not display any arrhythmias during the emergency department stay and also I reviewed her most recent Holter monitor which did not show any significant arrhythmias or other concerns. No evidence at this time of other ongoing emergency medical condition. We discussed trial of treatment with primary care follow-up. Both patient and family voiced understanding. Medical Records I reviewed the patient's medical records. Holter monitor from October of this year did not reveal any sustained arrhythmias. Lab Data I reviewed the patient's lab results. 09/02/24 11:14 09/02/24 11:14 Radiology Impressions Chest X-Ray 09/02/24 11:06 IMPRESSION: No acute findings. Gallbladder Ultrasound 09/02/24 11:06 IMPRESSION: No acute findings. Laboratory Results WBC 9.97 10^3/uL (3.29-11.43) 09/02/24 11:14 RBC 4.74 10^6/uL (3.85-5.65) 09/02/24 11:14 Hgb 13.80 g/dL (11.27-16.99) 09/02/24 11:14 Hct 42.8 % (36-47) 09/02/24 11:14 MCV 90.3 fl (85-98) 09/02/24 11:14 MCH 29.1 pg (27-33) 09/02/24 11:14 MCHC 32.2 g/dL (30-55) 09/02/24 11:14 RDW 12.0 % (12.1-15.1) L 09/02/24 11:14 Plt Count 367 10^3/cmm (157-399) 09/02/24 11:14 MPV 9.3 fL (7.4-10.4) 09/02/24 11:14 Neut % (Auto) 86.6 % 09/02/24 11:14 Lymph % (Auto) 11.4 % 09/02/24 11:14 [place] % (Auto) 1.4 % 09/02/24 11:14 Eos % (Auto) 0.0 % 09/02/24 11:14 Baso % (Auto) 0.3 % 09/02/24 11:14 Neut # (Auto) 8.63 10^3/uL (1.8-7.7) H 09/02/24 11:14 Lymph # (Auto) 1.1 10^3/uL (0.8-4.8) 09/02/24 11:14 [place] # (Auto) 0.1 10^3/uL (0.2-0.9) L 09/02/24 11:14 Eos # (Auto) 0.0 10^3/uL (0.0-0.8) 09/02/24 11:14 Baso # (Auto) 0.0 10^3/uL (0.0-0.1) 09/02/24 11:14 Nucleated RBC % (auto) 0 % 09/02/24 11:14 Nucleated RBCs # 0.0 /100WBC 09/02/24 11:14 Specimen Type Venous 09/02/24 13:55 Sample Site Not specified 09/02/24 13:55 Elijah Test N/a 09/02/24 13:55 VBG pH 7.32 (7.32-7.42) 09/02/24 13:55 VBG pCO2 30.1 mmHg (41-51) L 09/02/24 13:55 VBG pO2 31.5 mmHg (25-40) 09/02/24 13:55 VBG HCO3 15.4 mmol/L (24-28) L 09/02/24 13:55 VBG Base Excess -9.4 mmol/L (-3.0-3.0) L 09/02/24 13:55 VBG Hematocrit 40.9 % (37-47) 09/02/24 13:55 O2 Delivery Device Room air 09/02/24 13:55 Junior Financial Analyst ID [id number] 09/02/24 13:55 Sodium 136 mmol/L (136-145) 09/02/24 11:14 Potassium 4.0 mmol/L (3.5-5.1) 09/02/24 11:14 Chloride 102 mmol/L (98-107) 09/02/24 11:14 Carbon Dioxide 12 mmol/L (22-29) L 09/02/24 11:14 Anion Gap 26.0 (5-19) H 09/02/24 11:14 BUN 17 mg/dL (6-20) 09/02/24 11:14 Creatinine 1.0 mg/dL (0.5-0.9) H 09/02/24 11:14 GFR Calculation 68.7 mL/min (90-130) L 09/02/24 11:14 Glucose 81 mg/dL (65-115) 09/02/24 11:14 Calculated Osmolality 283 mOsm/kg (285-295) L 09/02/24 11:14 Calcium 8.9 mg/dL (8.5-10.5) 09/02/24 11:14 Total Bilirubin 0.7 mg/dL (0.15-1.2) 09/02/24 11:14 AST 20 U/L (0-32) 09/02/24 11:14 ALT 17 U/L (0-33) 09/02/24 11:14 Alkaline Phosphatase 55 U/L (35-105) 09/02/24 11:14 Total Protein 7.6 g/dL (6.6-8.7) 09/02/24 11:14 Albumin 4.4 g/dL (3.5-5.2) 09/02/24 11:14 Globulin 3.2 g/dL (1.3-4.6) 09/02/24 11:14 Lipase 42 U/L (13-60) 09/02/24 11:14 TSH 1.57 uIU/mL (0.27-4.20) 09/02/24 11:14 All radiology interpretation(s) finalized by discharge EKG Data EKG 1: I personally reviewed and interpreted this EKG as follows: Interpretation: Review of the resting EKG reveals a ventricular rate of 78 bpm. NE interval is noted to be 119 ms which is consistent with a shortened NE interval. She has a normal QRS, normal corrected QT interval. Normal axis. No acute or ischemic changes and no evidence of other pro arrhythmic syndromes at this time. Other EKG comments: Chest X-Ray 09/02/24 11:06 IMPRESSION: No acute findings. Gallbladder Ultrasound 09/02/24 11:06 IMPRESSION: No acute findings. Discharge Plan Discharge Patient Disposition: Home Clinical Impression: GERD (gastroesophageal reflux disease), Heart palpitations Condition: Stable Prescriptions: New famotidine [Pepcid] 20 mg tablet 20 mg PO BID 14 Days Qty: 28 1RF No Action etonogestrel-ethinyl estradiol [NuvaRing] 0.12-0.015 mg/24 hr ring 1 vag ring vaginal .monthly Qty: 3 3RF Rx Instructions: Insert ring for three weeks; remove for one week for period. acetaminophen [Tylenol] 325 mg Tablet 650 mg PO QID PRN (Reason: pain\) Discharge Orders: Discharge ED (Routine); Ordered 09/02/24 Ordered By: Blas Laureano Referrals: Adriana Braun, PRESENTATION SPECIALIST-C [Primary Care Provider] - Discharge Diet: Advance as tolerated Discharge Activity: Resume usual activity Patient Instructions: Opioid Safety, Pain Management Activity Restrictions/Additional Instructions: As we discussed while you are in the emergency department there is no evidence of gallbladder disease or other serious factors playing a role in your most recent symptoms. There is a likelihood that increased acid production and acid reflux may be a role in your most recent symptoms. Therefore we have prescribed a trial of medication to help reduce acid in your stomach to take twice daily for the next 2 weeks. You should follow-up with your regular doctor next 2 weeks to reassess your symptoms and see if you need to continue those medications for a prolonged period of time. You should advance your diet as tolerated over the next several days. If you have persistent or worsening symptoms or any other concerns at any time you are welcome to return to the emergency department for reevaluation. Coding Level of Care Code ED Senior Etl Developer for Elayne Villarreal
[2024-09-02 11:19] LABS: Basophils % 0.3 %; Hematocrit 42.8 % (36-47); Lymphocytes # 1.1 10^3/uL (0.8-4.8); Lymphocytes % 11.4 %; Mean Corpuscular HGB Conc 32.2 g/dL (30-55); Mean Corpuscular Hemoglobin 29.1 pg (27-33); Mean Corpuscular Volume 90.3 fl (85-98); Mean Platelet Volume 9.3 fL (7.4-10.4); Monocytes # 0.1 10^3/uL (0.2-0.9); Monocytes % 1.4 %; Neutrophils # 8.63 10^3/uL (1.8-7.7); Neutrophils % 86.6 %; Nucleated Red Blood Cells % 0 %; Platelet Count 367 10^3/cmm (157-399); Red Blood Count 4.74 10^6/uL (3.85-5.65); White Blood Count 9.97 10^3/uL (3.29-11.43)
[2024-09-02 11:35] LABS: Alanine Aminotransferase 17 U/L (0-33); Albumin Level 4.4 g/dL (3.5-5.2); Alkaline Phosphatase 55 U/L (35-105); Aspartate Amino Transferase 20 U/L (0-32); Blood Urea Nitrogen 17 mg/dL (6-20); Calcium 8.9 mg/dL (8.5-10.5); Carbon Dioxide 12 mmol/L (22-29); Chloride 102 mmol/L (98-107); Globulin 3.2 g/dL (1.3-4.6); Glomerular Filtration Rate 68.7 mL/min (90-130); Glucose 81 mg/dL (65-115); Lipase 42 U/L (13-60); Osmolality Calculated 283 mOsm/kg (285-295); Sodium 136 mmol/L (136-145); Total Bilirubin 0.7 mg/dL (0.15-1.2); Total Protein 7.6 g/dL (6.6-8.7)
[2024-09-02] MEDS: famotidine 20 mg/2 mL INJ IVP (11:48)
[2024-09-02] MEDS: lactated ringers 1,000 ML 999 ML IV (11:48)
[2024-09-02 11:54] LABS: Creatinine Clr Calc Pharmacy 70.1885
[2024-09-02 13:03] LABS: Thyroid Stimulating Hormone 1.57 uIU/mL (0.27-4.20)
[2024-09-02 14:05] LABS: Base Excess VBG -9.4 mmol/L (-3.0-3.0); Blood Gas Operator Identificat AMH; Blood Gas Sample Site Not specified; Blood Gas Sample Type Venous; HCO3 VBG 15.4 mmol/L (24-28); Oxygen Device ROOM AIR; PCO2 VBG 30.1 mmHg (41-51); PO2 VBG 31.5 mmHg (25-40); Venous Blood Gas Hematocrit 40.9 % (37-47); pH VBG 7.32 (7.32-7.42)
[2024-09-02 14:14] VITALS: BP 120/63; PULSE 83; RESP 15; O2SAT 99
[2024-09-02 15:26] VITALS: BP 112/58; PULSE 85; RESP 18; O2SAT 98
== END 2024-09-02 15:36 | disposition home or self-care (01) ==
PROVIDERS: Emergency Provider Emergency Medicine; PCP Nurse Practitioner
DX: K21.9 Gastro-esophageal reflux disease without esophagitis (principal); R00.2 Palpitations
CPT/HCPCS: 71045; 76705; 80053; 82803; 83690; 84443; 85025; 93005; 96374; 99285; J3490; J7120

== ENCOUNTER → 2024-09-11 11:51 | Outpatient (BNVA) | payer BC, MEDICAID, SELFPAY | PROVIDERS: PCP Nurse Practitioner; Visit Provider Nurse Practitioner | DX: R00.2 Palpitations (principal); F41.1 Generalized anxiety disorder; E61.1 Iron deficiency; E55.9 Vitamin D deficiency, unspecified | CPT/HCPCS: 82306; 82607; 83550 ==

== ENCOUNTER 2024-09-25 12:11 | Outpatient (CLI) | payer BC, MEDICAID, SELFPAY ==
--- NOTE | 2024-09-25 12:15 | US_ITS ---
WS: [id number] RENAL ULTRASOUND HISTORY: N18.30 - Chronic kidney disease, stage 3 unspecified COMPARISON: RIGHT upper quadrant ultrasound 09/02/2024 TECHNIQUE: 2-D and color Doppler imaging of the kidney submitted. Right kidney: 8.5 cm x 5.6 cm x 5.3 cm. Cortex: 1.5 cm Low normal size kidney. No cortical thinning. No obstruction or mass. Left kidney: 8.7 cm x 4.7 cm x 5.0 cm. Cortex: 1.7 cm Low normal size kidney. No cortical thinning. No obstruction or mass. Aorta: Normal. Urinary Bladder: Normal distention. US/US renal BI* [id number] IMPRESSION: 1. Low normal size kidneys. No cortical thinning or obstruction. 2. Normal urinary bladder.
== END 2024-09-25 12:12 | disposition home or self-care (01) ==
PROVIDERS: PCP Nurse Practitioner; Visit Provider Nurse Practitioner
DX: N18.30 Chronic kidney disease, stage 3 unspecified (principal)
CPT/HCPCS: 76770

== ENCOUNTER → 2025-01-15 16:26 | Outpatient (BNVA) | payer BC, MEDICAID, SELFPAY | PROVIDERS: PCP Nurse Practitioner; Visit Provider Nurse Practitioner | DX: R55 Syncope and collapse (principal) | CPT/HCPCS: 80053 ==

== ENCOUNTER 2025-01-28 14:50 | Outpatient (CLI) | payer BC, MEDICAID, SELFPAY ==
--- NOTE | 2025-01-28 15:15 | MR_ITS ---
WS: [id number] MRI BRAIN WITHOUT CONTRAST HISTORY: R55 - Syncope and collapse COMPARISON: None available. TECHNIQUE: Diffusion imaging, multiplanar T1, T2 and FLAIR imaging obtained. No evidence for acute infarct or hemorrhage. Cline-white matter differentiation is normal. No remote or acute infarcts are volume loss. Ventricles and extra-axial spaces are normal. No inferior displacement of cerebellar tonsils. The sella turcica and pituitary gland are unremarkable. Dural venous sinuses and [place] demonstrate no abnormality on this unenhanced studies. Paranasal sinuses: Clear. Mastoid air cells: Normal. Calvarium and scalp: Intact. MR/MR head wo con* [id number] IMPRESSION: 1. Unremarkable noncontrast MRI brain.
== END 2025-01-28 14:51 | disposition home or self-care (01) ==
LOC: RAD 14:51
PROVIDERS: PCP Nurse Practitioner; Visit Provider Nurse Practitioner
DX: R55 Syncope and collapse (principal)
CPT/HCPCS: 70551

== ENCOUNTER → 2025-09-02 16:11 | Outpatient (BNVA) | payer BC, MEDICAID, SELFPAY | PROVIDERS: PCP Nurse Practitioner; Visit Provider Nurse Practitioner | DX: R00.2 Palpitations (principal); K21.9 Gastro-esophageal reflux disease without esophagitis; E61.1 Iron deficiency | CPT/HCPCS: 80053; 83550; 84443; 85025 ==